=== PATIENT | male | born 1970 | race Caucasian/White ===

== ENCOUNTER 2020-05-21 14:41 | Emergency (ER) | payer MEDICAID, SELFPAY ==
[2020-05-21 14:42] VITALS: BP 148/94; PULSE 87; RESP 18; TEMP 36.3; O2SAT 97; BMI 27.1
--- NOTE | 2020-05-21 16:09 | ED.DCSUM_ITS ---
History of Present Illness Chief Complaint: Lower Extremity Injury Informant: Patient Narrative: 50-year-old male presenting with lumbar back pain with shooting pains into the right gluteal region as well as right thigh. He states he has a history of degenerative disc disease but has not had any severe back injuries. He states from time to time he does have pain. He states that the other day he overworked himself at home more than he would have normally and then he started to have pain in the right inguinal area. He thought at this point he pulled a muscle. He states he was walking with a limp and then developed back pain and pain in the gluteal region. He denies loss of bladder or bowel control. Denies urinary retention. Patient states that he has no known medical problems otherwise. He does not have a PCP. Past Medical History - Allergies and Home Meds Allergies/Adverse Reactions: Allergies No Known Allergies Allergy (Verified 05/21/20 14:44) Primary Care Physician: Kiera Guo [NON-STAFF] - NOT,OSIEL [NON-STAFF] - Prior records reviewed: Yes Past Medical History: - - Degenerative disc disease Surgical History: noncontributory Lives: Spouse/ Significant Other Smoking Status: Current every day smoker Alcohol: None Drugs: None Review of Systems General: Denies: Chills, Fever, Sweats Eyes: Reports: Visual changes - left ENT: Denies: Rhinorrhea, Sore throat Cardiovascular: Denies: Chest pain, Palpitations Respiratory: Denies: Dyspnea, Cough, Dyspnea on exertion Gastrointestinal: Denies: Abdominal pain, Nausea, Vomiting, Diarrhea, Melena, Hematochezia Genitourinary: Denies: Dysuria, Hematuria, Frequency Musculoskeletal: Reports: Myalgias - Right gluteal pain, Back pain Skin: Denies: Rash, Abscess Neurological: Denies: Headache Physical Exam Vital Signs/Narrative: Vital Signs Temp Pulse Resp BP Pulse Ox 05/21/20 14:42 97.4 F L 87 18 148/94 H 97 Inital Vital Signs reviewed: Yes General: Well nourished, No Acute Distress Head: Normocephalic Eyes: Perrl, EOMI ENT: Moist mucous membranes, No rhinorrhea Cardiovascular: Regular rate, Regular rhythm Respiratory: No distress, CTA bilaterally Back: - - Tenderness to palpation right lumbar paraspinal musculature extending into the right gluteal region.Spinal deformities or step-offs. Extremities: - - Right gluteal tenderness to palpation as noted above. Skin: Negative for: Normal color, No rash, Cyanosis Neurological: Alert, Oriented x3 Psychological: Normal affect, Normal Mood Diagnostic/Tx/Re-eval Clinical Impression(s) from Imaging Studies Lumbar Spine X-Ray 05/21/20 16:40 IMPRESSION: Normal x-ray examination of the lumbar spine. Electronically Signed: Angela Cruz MD at 17:11 EDT Tel , Service support , - Medical Decision Making 50-year-old male presenting with back pain and sciatica. He states he has had problems with degenerative disc disease in the past. I did obtain x-ray of the lumbar spine which is normal. Patient was treated with Toradol and Norflex in the ED with some improvement. He is counseled on stretching exercises, icing and heating in alternating fashion. Given follow-up with a PCP as he does not have currently. He is given return precautions. Impression: 1. Lumbar strain decline 2. Sciatica ED Disposition - Plan for ED Patient: Disposition: Home or Assisted Living Instructions: Understanding Sciatica, ED LUMBAR SPRAIN/STRAIN Prescriptions: Cyclobenzaprine HCl 10 mg PO Q8H PRN PRN #21 tab PRN Reason: Muscle Spasm Transmission Status: Received by [facility] Naproxen [Naprosyn] 500 mg PO BID PRN #30 tab Transmission Status: Received by [facility] predniSONE tablet 60 mg PO DAILY #6 tab Transmission Status: Received by [facility] Referrals: NOT,DEFINED [NON-STAFF] - Kiera Guo [NON-STAFF] -
--- NOTE | 2020-05-21 16:40 | RAD_ITS ---
STUDY: X-RAY - LUMBAR SPINE REASON FOR EXAM: Male, 50 years old. low back pain, sciatica pain, pain down right leg TECHNIQUE: 3 view(s) of the lumbar spine were obtained. COMPARISON: None FINDINGS: Normal lumbar lordosis. There is no substantial scoliosis. There is a normal alignment of the vertebrae. Normal vertebral bodies and endplates. Normal disc space heights. The soft tissue structures are unremarkable. RAD/Lumbar Spine 2 or 3 Views IMPRESSION: Normal x-ray examination of the lumbar spine. Electronically Signed: Angela Cruz MD at 17:11 EDT Tel , Service support ,
[2020-05-21] MEDS: Orphenadrine 60 MG/2 ML Ampul IM (16:55)
[2020-05-21] MEDS: Ketorolac 15 MG/ML Vial IM (16:55)
[2020-05-21 19:01] VITALS: BP 137/87; PULSE 88; RESP 17; O2SAT 98
== END 2020-05-21 19:06 | disposition home or self-care (01) ==
LOC: ED 16:36
PROVIDERS: Emergency Provider Student in an Organized Health Care Education/Training Program
DX: S39.012A Strain of muscle, fascia and tendon of lower back, initial encounter (principal); M54.41 Lumbago with sciatica, right side; F17.200 Nicotine dependence, unspecified, uncomplicated; X50.9XXA Other and unspecified overexertion or strenuous movements or postures, initial encounter; Y93.89 Activity, other specified; Y92.009 Unspecified place in unspecified non-institutional (private) residence as the place of occurrence of the external cause; Y99.8 Other external cause status
CPT/HCPCS: 72100; 96372; 99282

== ENCOUNTER 2020-09-20 12:59 | Inpatient (IN) | payer MEDICAID, SELFPAY ==
[2020-09-20] VITALS (25 sets, daily range): BP systolic 95–157; BP diastolic 60–104; PULSE 68–100; RESP 10–20; TEMP 35.7–36.9; O2SAT 50–100; BMI 28.4; BMI 28.5; BMI 29.1
[2020-09-20] MEDS: Naloxone 2 MG/2 ML Syringe NASAL (13:01)
[2020-09-20] MEDS: Etomidate 20 MG/10 ML Vial IV (13:04)
[2020-09-20] MEDS: Propofol 10MG/Ml 1,000 MG/100 ML Bottle 5.7 MG CONT INF (13:11)
--- NOTE | 2020-09-20 13:11 | EKG12_ITS ---
Test Reason : CODE BLUE Blood Pressure : / mmHG Vent. Rate : 099 BPM Atrial Rate : 099 BPM P-R Int : 144 ms QRS Dur : 084 ms QT Int : 330 ms P-R-T Axes : 054 006 054 degrees QTc Int : 423 ms Normal sinus rhythm Nonspecific ST abnormality Abnormal ECG Confirmed by SIRI ARAGON, CARLITO ([id number]), development editor CEDRIC CARLIN ([id number]) on 09/22/2020 11:31:59 AM Referred By: VERONICA Confirmed By:CARLITO HORNER MD
--- NOTE | 2020-09-20 13:15 | NURSING ---
code blue called 1257
--- NOTE | 2020-09-20 13:16 | NURSING ---
BLUE TOP HEMOLIZED
--- NOTE | 2020-09-20 13:17 | CT_ITS ---
STUDY: CT BRAIN WITHOUT CONTRAST REASON FOR EXAM: Male, 50 years old. UNRESPONSIVE RADIATION DOSAGE (If Supplied By Facility): CTDIvol = ( 44.99 ) mGy, DLP = ( 796.11 ) mGycm TECHNIQUE: Transaxial CT imaging of the brain was performed without administration of intravenous contrast material. Individualized dose optimization techniques were used for this CT. COMPARISON: No relevant priors. FINDINGS: Normal soft tissue structures. Status post right posterior parietal craniotomy. Normal size ventricles and extra-axial spaces for the patient''s age. Normal white matter tracts of the cerebral hemispheres. Normal basal ganglia and thalami. Normal brainstem. Normal cerebellum. There is no intracranial hemorrhage. There are no findings of an acute ischemic infarction. Soft tissue density/retention cyst in the left maxillary sinus. CT/Brain/Head without Contrast IMPRESSION: No acute intracranial process. Electronically Signed: Asael Claros MD at 14:20 EST Tel , Service support ,
[2020-09-20 13:18] LABS: Absolute Lymphocyte Count 6.74 X10^3/uL (0.83-4.51); Absolute Neutrophil Count 9.1 X10^3/uL (2.0-7.7); Basophil# 0.13 X10^3/uL; Basophil% 0.7 % (0-1); Differential Indicated SCAN CRITERIA MET; Eosinophil# 0.28 X10^3/uL; Eosinophils% 1.5 % (0-5); Hematocrit 53.5 % (40-54); Hemoglobin 17.1 g/dL (13.0-16.5); Lymphocyte # 6.74 X10^3/ul (4.0); Lymphocyte % 36.7 % (19-41); Mean Corpuscular Hgb 31.5 pg (27.0-32.0); Mean Corpuscular Volume 98.7 fL (80-94); Mean Platelet Vol. 9.1 fl (6.2-12.0); Monocyte# 1.67 X10^3/uL; Monocyte% 9.1 % (0-10); NRBC Flagged by Analyzer 0.1 % (0-5); Neutrophil # 9.14 X10^3/uL (2.7-7.7); Neutrophil % 49.9 % (47-70); POSITIVE DIFFERENTIAL YES; Platelet Count 312 K/mm3 (150-450); RBC Distribution Width CV 12.8 % (11.6-14.6); RBC Distribution Width SD 46.3 fl (35.1-43.9); Red Blood Count 5.42 M/mm3 (4.6-6.2); White Blood Count 18.4 K/mm3 (4.4-11.0)
--- NOTE | 2020-09-20 13:18 | ED.VISSUMM ---
- ER Visit Summary Date of Service: 09/20/20 Chief Complaint: Unresponsive History of Present Illness: The patient is a 50 M who presents unresponsive to the emergency department. Father brought the patient to the emergency department in his private vehicle. 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 Father states that he got a call saying his son was not doing well and he returned to where they were target shooting. Father noticed that the patient was weak and becoming unresponsive. Father placed the patient in his vehicle and brought him to the emergency department. Upon arrival to the emergency department, patient was placed on a cot and no pulses were palpated. CPR was started. Physical Examination: When the patient was placed in a room. Patient did have a pulse and CPR was discontinued. Vital signs are good blood pressure. Patient had no spontaneous respirations. Oral mucosa is pink and moist. There was some cyanosis of the face and head. Neck is supple. Trachea is midline. There is no JVD. Heart was regular rate and rhythm. Lungs are clear and equal bilaterally with mechanical ventilation. Abdomen is soft. Bowel sounds are normal. There is no apparent tenderness. Test Results: EKG was obtained. My interpretation, there is a normal sinus rhythm with a rate of 99. There is some baseline artifact. There is no acute ST or T wave changes noted. Portable 1 view chest x-ray was obtained. On my interpretation, lung camara are clear. There is some atelectasis noted. Endotracheal tube and nasogastric tube are in place. There is normal cardiac silhouette. Bony thorax is normal. There is no acute process noted. Radiologist also interpreted the x-ray and agrees. CBC shows a leukocytosis of 18.4. Comprehensive metabolic profile was essentially within normal limits. PT with INR and PTT were normal. Arterial blood gas shows a pH of 7.20 with a PCO2 of 60.9, PO2 of 444, bicarb of 23.6, and 100% sat on ventilator. Troponin was normal. Lactate was 2.0. CT scan of the brain was obtained. There is no acute intracranial abnormality. Was interpreted by the radiologist and reviewed by myself. Emergency Department Course and Treatment: Patient was given a dose of Narcan. Patient was intubated with a 7.5 ET tube using a glide scope. Patient did require etomidate for sedation. Patient was then placed on propofol for sedation. Patient tolerated the procedure well. Case was discussed with the hospitalist. Patient will be admitted to ICU. Hospitalist examination, patient was more awake and was able to answer yes/no questions by shaking his head. Patient did admit to snorting heroin. Hospitalist wants to try to wean the patient off the ventilator since he is now more awake and alert. Family understood and was agreeable with the plan. All questions were answered. Disposition: Admit to ICU Impression: 1. Cardiopulmonary arrest Critical care time: 40 minutes. This was time spent obtaining history, performing physical examination, documenting, interpreting test results, discussion with consultants, and determining disposition. This note was generated with [employer] dictation software. It may contain incorrect words, spelling, and punctuation that were not noted in review of the chart prior to signing ED Disposition - Plan for ED Patient: Disposition: Acute Care Hospital [facility] Diagnosis: Cardiopulmonary arrest with successful resuscitation Referrals: Care Physician,No Primary [NON-STAFF] -
--- NOTE | 2020-09-20 13:28 | RAD_ITS ---
STUDY: X-RAY CHEST REASON FOR EXAM: Male, 50 years old. Patient found unresponsive, line placement TECHNIQUE: Single AP portable view of the chest. COMPARISON: None. FINDINGS: Endotracheal tube with its tip approximately 5 cm proximal to the paramjit. Nasogastric tube extends below the level of diaphragm but is not included on this examination. Stranding/atelectasis in the left lung base. No focal infiltrate otherwise is seen. There is no demonstrated pleural abnormality. Normal size heart. Normal mediastinum and cj. Normal visualized pulmonary arteries. Normal visualized aortic arch and descending thoracic aorta. The thoracic spine is not well-seen. Normal visualized ribs, clavicles, and shoulders. There is no demonstrated abnormality of the visualized soft tissue structures of the upper abdomen. RAD/Chest 1 View (Portable) IMPRESSION: Status post intubation and nasogastric tube placement. Mild atelectatic changes in the left lung base. Electronically Signed: Asael Claros MD at 13:49 EST Tel , Service support ,
[2020-09-20 13:30] LABS: Base Excess -4 mmol/L (-2 to +2); Bicarbonate 23.6 mmol/L (22-26); Blood Gas Specimen Type ART; FI02 100; Mode AC; O2 Delivery Device Adult Vent; PEEP 5; PO2 444 mmHG (75-100); RR 14; SITE R Brach; SO2 100 % (95-99); Total Carbon Dioxide 26 mmol/L; Vt 500; pCO2 60.9 mmHg (35-45)
[2020-09-20 13:31] LABS: AST(SGOT) 103 U/L (15-37); Alanine Aminotransfer ALT/SGPT 25 U/L (16-61); Alkaline Phosphatase 138 U/L (45-117); Anion Gap 8 (5-15); BUN 7 mg/dL (7-18); BUN/Creat Ratio 6.5 RATIO (10-20); Calcium,Total 8.8 mg/dL (8.5-10.1); Chloride 105 mmol/L (98-107); Creatinine, Serum 1.07 mg/dL (0.70-1.30); EST Glomerular Filtration Rate 77 mL/min (>60); Est Glom Filt Rate - Afr Amer 94 mL/min (>60); Glucose 170 mg/dL (74-106); Potassium 3.8 mmol/L (3.5-5.1); Sodium Level 139 mmol/L (136-145)
[2020-09-20 13:38] LABS: Differential Comment SCANNED; Reactive Lymphocyte 1+
[2020-09-20 13:43] LABS: Squamous Epithelial Cells - UA 0 SEEN /hpf (0-5); White Blood Cells 0 SEEN /hpf (0-5)
[2020-09-20 13:44] LABS: International Normalized Ratio 1.1; Prothrombin Time (Protime)PT. 13.2 SECONDS (11.7-14.9)
[2020-09-20 13:44] LABS: Color, Urine Yellow (Yellow); Glucose, Dipstick 250 mg/dl (Normal); Ketone-Dipstick 5 mg/dl (Negative); Leukocyte Esterase-Dipstick 25 /ul (Negative); Nitrite-Dipstick Negative (Negative); Occult Blood-Urine 50 /ul (Negative); Protein-Dipstick 30 mg/dl (Negative); Specific Gravity, Urine 1.025 (1.002-1.030); Urine Bilirubin Dipstick Negative (Negative); Urine Clarity Sl. Cloudy (Clear); Urine Urobilinogen 1 mg/dl (Normal)
[2020-09-20 13:45] LABS: Partial Thromboplast Time 24.9 Seconds (24.1-36.2)
[2020-09-20 13:52] LABS: Bacteria RARE /hpf (None Seen); Calcium Oxalate Crystals Ur 1+ /hpf (<or=2+); Hyaline Cast 10-25 SEEN /lpf (0-5); Mucous, Urine 2+ /hpf (<or=2+); Red Blood Cells-Urine 0-5 SEEN /hpf (0-5)
--- NOTE | 2020-09-20 14:04 | CPS ---
Critical PaO2 on blood gas given to at 1330 on 09-20-2020.
--- NOTE | 2020-09-20 15:17 | PCM.HP.STD ---
Problem List (1) Heroin overdose Status: Acute (2) Cardiopulmonary arrest with successful resuscitation Status: Acute History of Present Illness Date of Admission: 09/20/20 Chief Complaint: Cardiopulmonary arrest. The patient is a 50 year old M with no significant past medical history presented to the emergency room by his father on his private car because patient was unresponsive. At this time, patient is awake and alert but he is on mechanical ventilation. Patient's father and mother were at the bedside and father provided the history. Patient's father mentioned that this morning, he went with his son to the [employer] and he left the range to go home. He was told by a friend who told him that his son is not doing well and irritated were his son was at the [employer]. Patient's father mentioned that the patient was profusely sweating, awake but lethargic and he had no complaints. The father mentioned that his son did not complain of any chest pain or shortness of breath, did not complain of any dizziness or lightheadedness. Follow-up with his son in the car and they brought him to the emergency department. In route to the hospital, the father mentioned that the patient became more unresponsive. Upon arrival to ED, patient was placed on a cot and he had no pulse. CPR was started and then upon arrival to the ED room, patient had spontaneous circulation and he had pulse. He was intubated and started mechanical ventilation. He was given 1 dose of IV Narcan. At this time, patient is awake, alert, on mechanical ventilation. I asked the patient about using drugs and he did admitting snorting heroin after his father left the [employer]. At this time, patient is afebrile, blood pressure and heart rate are stable, pulse ox is 99% on mechanical ventilation. Because patient was fully awake and his respiratory status seems stable, we decided to extubate the patient while in the ED. Patient was extubated, did very well and he remained on oxygen at 2 L with pulse ox of 99%. Routine blood work was remarkable for significant leukocytosis, blood glucose is 170, otherwise normal. LFT was unremarkable. Lactic acid was normal. ABG revealed pH of 7.20, PCO2 of 60 and PO2 of 444. Urinalysis showed cloudy urine, negative for nitrite, there was no WBCs and rare bacteria. EKG revealed normal sinus rhythm with nonspecific T wave changes, no acute ischemic changes. Troponin is negative. CT scan brain showed no acute findings. Urine drug screen was positive for amphetamines and methamphetamines. Chest x-ray showed no acute infiltrate or consolidation. He is being admitted for cardiopulmonary arrest due to drug overdose. Past Medical History Allergies Penicillins [PCN] Allergy (Verified 09/20/20 14:30) Hives shellfish derived Adverse Reaction (Verified 09/20/20 14:30) Nausea/Vom/Diarrhea Home Medications: Ambulatory Orders Medication Instructions Recorded NK 09/20/20 Surgical History: noncontributory Psychiatric History: No pertinent psych hx Smoking Status: Current every day smoker Tobacco Use: Cigarettes Alcohol: None Drugs: Heroin - *Family History Maternal History Items: No pertinent history Paternal History Items: No pertinent history Review of Systems Constitutional: Denies: Anorexia, Chills, Fever, Weakness Eyes: Denies: Blurred vision, Double vision, Drainage, Redness HEENT: Denies: Difficulty Hearing, Ear Pain, Eye Pain, Nasal Congestion, Sore Throat Cardiovascular: Denies: Chest Pain, Chest Pressure, Edema, Palpitations, Syncope Respiratory: Denies: Cough, Pleuritic Pain, Shortness of Breath, Sputum production, Wheezing Gastrointestinal: Denies: Abdominal Pain, Constipation, Diarrhea, Nausea, Vomiting Genitourinary: Denies: Dysuria, Frequency, Hematuria Musculoskeletal: Denies: Arm Pain, Back Pain, Foot Pain Skin: Denies: Dryness, Rash Neurological: Denies: Balance problems, Double vision, Change in Speech, Slurred speech, Headaches, Incoordination Psychiatric: Denies: Anxiety, Depression Endocrine: Denies: Change in Body Habitus, Polydipsia, Polyuria VTE Information - Inpt Only VTE Present on Admission: No VTE Mechan Device Prophylaxis: None VTE Pharm Prophylaxis ordered?: Yes Patient Problems: Active and Suspected Problems Heroin overdose (Acute) Cardiopulmonary arrest with successful resuscitation (Acute) - Physical Exam Vitals/I&O's: Vital Signs Temp Pulse Resp BP Pulse Ox 96.5 F L 77 19 H 126/86 H 99 09/20/20 15:16 09/20/20 15:16 09/20/20 15:16 09/20/20 14:34 09/20/20 15:16 Oxygen Flow Rate (L/min) 3 Oxygen Delivery Method Mechanical Ventilator Weight: 209 lb 14.081 oz Body Mass Index (BMI) 28.4 Finger Stick Blood Glucose 156 Intake and Output for Last 24 Hours 09/18/20 09/19/20 09/20/20 23:59 23:59 23:59 Intake Total Balance General: Alert, Oriented x3, Cooperative, No apparent distress, - HEENT: Atraumatic, PERRLA, EOMI, Normocephalic Oral: Moist Mucosa, No Gingival or Mucosal Lesions/ Ulcerations Neck: Supple, No JVD, Negative Carotid Bruits, Trachea Midline, Thyroid Normal Size and Texture Lungs: Clear to auscultation, Normal air movement, No wheeze, No rales, Diminished Cardiovascular: Regular rate, Regular Rhythm, Normal S1, Normal S2, PMI Normal Abdomen: Bowel Sounds Present, Soft, Non Tender, Non-Distended, No Hepato-splenomegaly Extremities: No clubbing, No cyanosis, No edema Skin: No rashes, No breakdown Lymphatic: No Cervical, Supraclavicular, or Inguinal Adenopathy Neurological: Cranial nerves II-XII grossly intact, Motor Exam 5/5 strength throughout Psych/Mental Status: Normal Affect, Appropriate Laboratory Results 09/20/20 13:00: WBC 18.4 H, RBC 5.42, Hgb 17.1 H, Hct 53.5, MCV 98.7 H, MCH 31.5, MCHC 32.0, RDW Std Deviation 46.3 H, RDW Coeff of Yair 12.8, Plt Count 312, MPV 9.1, Immature Gran % (Auto) 2.100 H, Neut % (Auto) 49.9, Lymph % (Auto) 36.7, Garfield % (Auto) 9.1, Eos % (Auto) 1.5, Baso % (Auto) 0.7, Absolute Neuts (auto) 9.1 H, Absolute Lymphs (auto) 6.74 H, Nucleated RBC % 0.1, Differential Comment SCANNED, Diff Path Review November, Reactive Lymphocytes 1+ 09/20/20 13:00: Sodium 139, Potassium 3.8, Chloride 105, Carbon Dioxide 26.0, Anion Gap 8, BUN 7, Creatinine 1.07, Est GFR (MDRD) Af Amer 94, Est GFR (MDRD) Non-Af 77, BUN/Creatinine Ratio 6.5 L, Glucose 170 H, Calcium 8.8, Total Bilirubin 0.60, AST 103 H, ALT 25, Alkaline Phosphatase 138 H, Troponin I < 0.015, Total Protein 8.0, Albumin 4.0, Globulin 4.0, Albumin/Globulin Ratio 1.0 09/20/20 13:10: Urine Color Yellow, Urine Clarity Sl. Cloudy, Urine pH 5.0, Ur Specific [place] 1.025, Urine Protein 30 H, Urine Glucose (UA) 250 H, Urine Ketones 5 H, Urine Occult Blood 50 H, Urine Nitrite Negative, Urine Bilirubin Negative, Urine Urobilinogen 1 H, Ur Leukocyte Esterase 25 H, Urine RBC 0-5 SEEN, Urine WBC 0 SEEN, Ur Squamous Epith Cells 0 SEEN, Calcium Oxalate Crystal 1+, Urine Bacteria RARE, Hyaline Casts 10-25 SEEN, Urine Mucus 2+ 09/20/20 13:10: Urine Opiates Screen Pending, Urine Methadone Screen Pending, Ur Barbiturates Screen Pending, Ur Phencyclidine Scrn Pending, Ur Amphetamines Screen Pending, U Methamphetamin-MDMA Pending, U Benzodiazepines Scrn Pending, Urine Cocaine Screen Pending, U Cannabinoids Screen Pending, Ur Drug Screen Comment 09/20/20 13:26: Specimen Type ART, Sample Site R Brach, pH 7.20 L, Bicarbonate Actual 23.6, Total CO2 26, Base Excess -4 L, O2 Saturation 100 H, O2 % 100, ABG pCO2 60.9 H, ABG pO2 444 H*, Respiration Rate 14, O2 Delivery Device Adult Vent, Vent Mode AC, Tidal Volume 500, POC PEEP 5 09/20/20 13:30: PT 13.2, INR 1.1, APTT 24.9 09/20/20 13:30: Lactic Acid 2.0 Clinical Impression(s) from Imaging Studies Brain CT 09/20/20 13:17 IMPRESSION: No acute intracranial process. Electronically Signed: Asael Claros MD at 14:20 EST Tel , Service support , Chest X-Ray 09/20/20 13:28 IMPRESSION: Status post intubation and nasogastric tube placement. Mild atelectatic changes in the left lung base. Electronically Signed: Asael Claros MD at 13:49 EST Tel , Service support , Current Medications Propofol (Diprivan) 1,000 mg in 100 mls @ 5.712 mls/hr CONT INF .Q12H NEO; Protocol Last Titration: 09/20/20 15:16 Dose: 20 mcg/kg/min, 11.4 mls/hr Documented by: Assessment/Plan All Active Problems Heroin overdose (Acute) Cardiopulmonary arrest with successful resuscitation (Acute) This is a 50 years old male patient presented to the emergency room because of unresponsiveness, found to have cardiopulmonary arrest upon arrival to ED, status post CPR with successful anglican of the spontaneous circulation and this is attributed to heroin overdose. #1 cardiopulmonary arrest/acute hypercapnic respiratory failure: Status post CPR with successful anglican of spontaneous circulation. Initially, patient was intubated and started mechanical ventilation. After he received IV Narcan, he became alert and awake and did well. Decision was made to extubate the patient which was done and he was extubated, remained on oxygen at 2 L with pulse ox of 99%. Currently, blood pressure and heart rate are stable. It is attributed to drug overdose. EKG revealed normal sinus rhythm without evidence of acute ischemic changes. Troponin was negative. CT scan brain showed no acute findings. Troponin is negative. Plan: Admit to intensive care unit, critical care monitoring, complete bedrest, start clear liquids, IV fluids for hydration, Tylenol as needed, Zofran as needed, critical care consult, repeat CBC and CMP tomorrow morning. #2 heroin overdose: Patient admitted snorting heroin just before symptoms started. Urine drug screen is positive for amphetamines and methamphetamines. He received 1 dose of IV Narcan in the ED. Currently, he is alert and awake, status post extubation. Plan as above. #3 hyperglycemia: Without history of diabetes. Will check hemoglobin A1c. #4 DVT prophylaxis: Subcu Lovenox. This note was generated with [employer] software. It may contain incorrect words, spelling, and punctuation that were not noted in checking the note before signing. Inpatient E&M: 11014 Init Hosp L3
--- NOTE | 2020-09-20 15:18 | NURSING ---
ICU [facility] CPR
--- NOTE | 2020-09-20 15:30 | NURSING ---
ICU 3
--- NOTE | 2020-09-20 15:55 | ED.RN ---
PT EXTUBATED BY RESP THERAPY. DR DUNCAN IN THE ROOM IMMEDIATELY AFTER EXTUBATION. PT ABLE TO BREATHE ON HIS OWN WITHOUT DIFFICULTY. PT ABLE TO SWALLOW HIS OWN SECRETIONS. PER DR DUNCAN, OK FOR PT TO DRINK SOME WATER. PT DRANK WATER WITHOUT DIFFICULTY.
--- NOTE | 2020-09-20 16:12 | NURSING ---
PCU [facility]BS
[2020-09-20] MEDS: 0.9% Normal Saline 1,000 ML 100 ML IV (16:45)
[2020-09-20 17:09] LABS: Hemoglobin A1c 6.2 % (3.8-5.6)
[2020-09-20 17:33] LABS: Reflex Lactate? Y
[2020-09-20] MEDS: Acetaminophen 325 MG Tablet 650 MG PO (19:49)
[2020-09-20] MEDS: Famotidine 200 MG/20 ML MDV 20 MG in 0.9% Normal Saline (Pres. free 8 ML 300 MG IV (21:06)
[2020-09-21] VITALS (10 sets, daily range): BP systolic 108–147; BP diastolic 62–97; PULSE 72–102; RESP 13–18; TEMP 36.6–37.3; O2SAT 94–99
[2020-09-21] MEDS: 0.9% Normal Saline 1,000 ML 100 ML IV (02:47)
[2020-09-21] MEDS: 0.9% Saline Lock 10 ML Syringe IV ×2 (03:48→22:19)
[2020-09-21] MEDS: Acetaminophen 325 MG Tablet 650 MG PO ×2 (03:48→18:08)
[2020-09-21 03:50] LABS: Absolute Lymphocyte Count 3.05 X10^3/uL (0.83-4.51); Absolute Neutrophil Count 7.1 X10^3/uL (2.0-7.7); Basophil# 0.06 X10^3/uL; Basophil% 0.5 % (0-1); Eosinophils% 2.6 % (0-5); Hematocrit 43.4 % (40-54); Hemoglobin 13.9 g/dL (13.0-16.5); Lymphocyte # 3.05 X10^3/ul (4.0); Lymphocyte % 26.6 % (19-41); Mean Corpuscular Hgb 31.7 pg (27.0-32.0); Mean Corpuscular Volume 99.1 fL (80-94); Mean Platelet Vol. 8.7 fl (6.2-12.0); Monocyte% 7.8 % (0-10); NRBC Flagged by Analyzer 0 % (0-5); Neutrophil # 7.08 X10^3/uL (2.7-7.7); Neutrophil % 61.8 % (47-70); Platelet Count 228 K/mm3 (150-450); RBC Distribution Width CV 12.8 % (11.6-14.6); RBC Distribution Width SD 46.9 fl (35.1-43.9); Red Blood Count 4.38 M/mm3 (4.6-6.2); White Blood Count 11.5 K/mm3 (4.4-11.0)
[2020-09-21 05:25] LABS: ALB/GLOB Ratio 0.9 RATIO (0.9-2.4); AST(SGOT) 84 U/L (15-37); Alanine Aminotransfer ALT/SGPT 19 U/L (16-61); Albumin, Serum 2.7 g/dL (3.2-5.0); Alkaline Phosphatase 98 U/L (45-117); Anion Gap 6 (5-15); BUN 8 mg/dL (7-18); BUN/Creat Ratio 9.3 RATIO (10-20); Calcium,Total 8.1 mg/dL (8.5-10.1); Chloride 112 mmol/L (98-107); Creatinine, Serum 0.86 mg/dL (0.70-1.30); EST Glomerular Filtration Rate 99 mL/min (>60); Est Glom Filt Rate - Afr Amer 120 mL/min (>60); Estimated Creatinine Clearance 111.54 ml/min; Globulin 2.9 g/dL (2.2-4.2); Glucose 154 mg/dL (74-106); Protein, Total 5.6 g/dL (6.4-8.2); Sodium Level 142 mmol/L (136-145)
[2020-09-21] MEDS: Enoxaparin 40 MG/0.4 ML Syringe SC (09:07)
[2020-09-21] MEDS: Famotidine 200 MG/20 ML MDV 20 MG in 0.9% Normal Saline (Pres. free 8 ML 300 MG IV ×2 (09:07→22:19)
--- NOTE | 2020-09-21 11:11 | PN_ITS ---
Patient Problems: Active and Suspected Problems Heroin overdose (Acute) Cardiopulmonary arrest with successful resuscitation (Acute) Subjective: Patient seen and examined. He was admitted as a case of cardiopulmonary arrest after he snorted a line of heroin. Patient subsequently was revived with Narcan. She has remained stable since. Patient has no complaints this morning. Review of systems otherwise negative. He has remained hemodynamically stable. Vitals/I&O's: Vital Signs Temp Pulse Resp BP Pulse Ox 99.1 F 95 13 147/84 H 94 09/21/20 09:08 09/21/20 09:08 09/21/20 09:08 09/21/20 09:08 09/21/20 09:08 Oxygen Flow Rate (L/min) 2 Oxygen Delivery Method Room Air Weight: 214 lb 15.987 oz Body Mass Index (BMI) 29.1 Finger Stick Blood Glucose 156 Intake and Output for Last 24 Hours 09/19/20 09/20/20 09/21/20 23:59 23:59 23:59 Intake Total 340.02 / 340.02 1310 / 1310 Output Total 500 / 500 150 / 150 Balance -159.98 / -159.98 1160 / 1160 General: Alert, Oriented x3, Cooperative HEENT: Atraumatic, PERRLA, EOMI, Normocephalic Neck: Supple, No JVD, Negative Carotid Bruits Lungs: Clear to auscultation, Normal air movement Cardiovascular: Regular rate, No murmurs Abdomen: Bowel Sounds Present, Soft, Non Tender Extremities: No edema, Capillary Refill Less than 3 Seconds Skin: No rashes, No breakdown Musculoskeletal: No Tenderness to Palpation of Joints or Extremities Neurological: Cranial nerves II-XII grossly intact, Neuro grossly intact, Motor Exam 5/5 strength throughout Psych/Mental Status: Normal Affect, Appropriate, Alert and oriented to time, place, person, mood and affect Laboratory Results 09/20/20 13:00: WBC 18.4 H, RBC 5.42, Hgb 17.1 H, Hct 53.5, MCV 98.7 H, MCH 31.5, MCHC 32.0, RDW Std Deviation 46.3 H, RDW Coeff of Yair 12.8, Plt Count 312, MPV 9.1, Immature Gran % (Auto) 2.100 H, Neut % (Auto) 49.9, Lymph % (Auto) 36.7, [place] % (Auto) 9.1, Eos % (Auto) 1.5, Baso % (Auto) 0.7, Absolute Neuts (auto) 9.1 H, Absolute Lymphs (auto) 6.74 H, Nucleated RBC % 0.1, Differential Comment SCANNED, Diff Path Review May foll, Reactive Lymphocytes 1+ 09/20/20 13:00: Sodium 139, Potassium 3.8, Chloride 105, Carbon Dioxide 26.0, Anion Gap 8, BUN 7, Creatinine 1.07, Est GFR (MDRD) Af Amer 94, Est GFR (MDRD) Non-Af 77, BUN/Creatinine Ratio 6.5 L, Glucose 170 H, Calcium 8.8, Total Bilirubin 0.60, AST 103 H, ALT 25, Alkaline Phosphatase 138 H, Troponin I < 0.015, Total Protein 8.0, Albumin 4.0, Globulin 4.0, Albumin/Globulin Ratio 1.0 09/20/20 13:10: Urine Color Yellow, Urine Clarity Sl. Cloudy, Urine pH 5.0, Ur Specific [place] 1.025, Urine Protein 30 H, Urine Glucose (UA) 250 H, Urine Ketones 5 H, Urine Occult Blood 50 H, Urine Nitrite Negative, Urine Bilirubin Negative, Urine Urobilinogen 1 H, Ur Leukocyte Esterase 25 H, Urine RBC 0-5 SEEN, Urine WBC 0 SEEN, Ur Squamous Epith Cells 0 SEEN, Calcium Oxalate Crystal 1+, Urine Bacteria RARE, Hyaline Casts 10-25 SEEN, Urine Mucus 2+ 09/20/20 13:10: Urine Opiates Screen Cancelled, Urine Methadone Screen Cancelled, Ur Barbiturates Screen Cancelled, Ur Phencyclidine Scrn Cancelled, Ur Amphetamines Screen Cancelled, U Methamphetamin-MDMA Cancelled, U Benzodiazepines Scrn Cancelled, Urine Cocaine Screen Cancelled, U Cannabinoids Screen Cancelled, Ur Drug Screen Comment Cancelled 09/20/20 13:26: Specimen Type ART, Sample Site R Brach, pH 7.20 L, Bicarbonate Actual 23.6, Total CO2 26, Base Excess -4 L, O2 Saturation 100 H, O2 % 100, ABG pCO2 60.9 H, ABG pO2 444 H*, Respiration Rate 14, O2 Delivery Device Adult Vent, Vent Mode AC, Tidal Volume 500, POC PEEP 5 09/20/20 13:30: PT 13.2, INR 1.1, APTT 24.9 09/20/20 13:30: Lactic Acid 2.0 09/20/20 16:00: Hemoglobin A1c 6.2 H 09/21/20 03:45: WBC 11.5 H, RBC 4.38 L, Hgb 13.9, Hct 43.4, MCV 99.1 H, MCH 31.7, MCHC 32.0, RDW Std Deviation 46.9 H, RDW Coeff of Yair 12.8, Plt Count 228, MPV 8.7, Immature Gran % (Auto) 0.700, Neut % (Auto) 61.8, Lymph % (Auto) 26.6, [place] % (Auto) 7.8, Eos % (Auto) 2.6, Baso % (Auto) 0.5, Absolute Neuts (auto) 7.1, Absolute Lymphs (auto) 3.05, Nucleated RBC % 0 09/21/20 03:45: Sodium 142, Potassium 4.0, Chloride 112 H, Carbon Dioxide 24.0, Anion Gap 6, BUN 8, Creatinine 0.86, Estim Creat Clear Calc 111.54, Est GFR (MDRD) Af Amer 120, Est GFR (MDRD) Non-Af 99, BUN/Creatinine Ratio 9.3 L, Glucose 154 H, Calcium 8.1 L, Total Bilirubin 0.50, AST 84 H, ALT 19, Alkaline Phosphatase 98, Total Protein 5.6 L, Albumin 2.7 L, Globulin 2.9, Albumin/Globulin Ratio 0.[address] 09/20/20 13:17 IMPRESSION: No acute intracranial process. Electronically Signed: Asael Claros MD at 14:20 EST Tel , Service support , Chest X-Ray 09/20/20 13:28 IMPRESSION: Status post intubation and nasogastric tube placement. Mild atelectatic changes in the left lung base. Electronically Signed: Asael Claros MD at 13:49 EST Tel , Service support , Current Medications Acetaminophen (Acetaminophen 325 Mg Tablet) 650 mg PO Q6H PRN PRN PRN Reason: Pain 1-10 or Fever Last Admin: 09/21/20 03:48 Dose: 650 mg Documented by: Enoxaparin Sodium (Enoxaparin 40 Mg/0.4 Ml Syringe) 40 mg SC DAILY [facility] Last Admin: 09/21/20 09:07 Dose: 40 mg Documented by: Sodium Chloride () 1,000 mls @ 100 mls/hr IV .Q10H NEO Last Admin: 09/21/20 02:47 Dose: 100 mls/hr Documented by: Famotidine 20 mg/ Sodium (Chloride) 10 mls @ 300 mls/hr IV Q12 [facility] Last Infusion: 09/21/20 09:09 Dose: Infused Documented by: Nicotine (Nicotine 21 Mg Patch) 21 mg TD DAILY [facility] Last Admin: 09/21/20 09:07 Dose: 21 mg Documented by: Ondansetron HCl (Ondansetron 4 Mg/2 Ml Vial) 4 mg IV Q8H PRN PRN PRN Reason: NAUSEA/VOMITING Sodium Chloride (0.9% Saline Lock 10 Ml Syringe) 10 - 40 ml IV UD PRN PRN Reason: SALINE FLUSH Last Admin: 09/21/20 03:48 Dose: 10 ml Documented by: STROKE Vital Signs/Narrative: Vital Signs Temp Pulse Resp BP Pulse Ox 09/21/20 09:08 99.1 F 95 13 147/84 H 94 09/21/20 07:40 82 Medical Necessity - Tobacco Use Smoking Status: Current every day smoker Tobacco Use: Cigarettes Assessment/Plan All Active Problems Heroin overdose (Acute) Cardiopulmonary arrest with successful resuscitation (Acute) #Acute cardiopulmonary arrest due to heroin overdose * patient was revived with use of narcan in the ED and has remained stable since * admits to snorting a line of heroin yesterday'; claims he has abstained from heroin for the past 5 years, till yesterday * He has remained hemodynamically stable. * Critical care not consulted at time of admission. Patient now hemodynamically stable and I will transfer out of the ICU; therefore will hold off on critical care consult. # Impaired glucose tolerance * glucose was elevated on admission. A1C was 6.2. * will relationship counselor on DASh diet and lifestyle modifications * to follow up with PCP on outpatient basis * #Heroin overdose * urine tox positive for amphetamines and methamphetamines * was intubated, but subsequently extubated after he was revived with narcan. * wants access to counseling services. Will consult [facility] * DVT prophylaxis: lovenox Inpatient E&M: 74703 Subs Hosp L2
--- NOTE | 2020-09-21 11:44 | CASEMGMT ---
SW met w/pt in room in regard to prior level of function and anticipated discharge plan. PCP: Natalie Henry with a PCP office in [place], pt not certain the name of it, has not been in to see her yet--just got appt when got new insurance Specialists: None Pharmacy: [facility] [place] Insurance: [place] LNOK: Parents, son who is 27, (in process of divorce) LW/POA: Pt thinks he completed these in the past and it lists his . Pt is interested in updating forms, but not today. Pt wants to speak w/son about putting him as medical POA. SW reviewed the forms w/pt and gave him copies, gave him the number to call to set up appt if he would like to update the forms. Living arrangements/Prior level of function: Pt is currently living w/his parents in a one story home, living in their house and he states she will likely get the house in the divorce. Pt is fully independent with ADLs, drives, has a vehicle. 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 He has a history of snorting heroin, and of smoking cigarettes. Pt denies any additional history of substance abuse. Pt states a friend offered him some heroin on Monday and he decided to do it. Pt plans to get and stay clean again. Pt has been to [facility] in the past, and has participated in NA in the past. Pt interested in getting back involved with [facility] and with returning to NA, would like information for in person NA meetings and is open to SW setting up an intake appt at [facility]. Support: Pt states has a good support system with family and friends, and states that they will be helpful to him. Pt agreeable to SW setting up appt at [facility] and to information on NA. SW set up an intake at [facility] for 9am on 09/25/20. SW also asked about in person NA meetings, attained this information for pt. SW gave pt the information for the appointment and for the NA meetings. Plan: Pt home w/parents at discharge and follow up w/[facility] and NA. No further needs anticipated at this time. YUKI Aguilera
[2020-09-21 13:33] LABS: Pathologist Review Reviewed
--- NOTE | 2020-09-21 15:11 | NURSING ---
1505-report given to LISSY Elliott for transfer to [facility].
--- NOTE | 2020-09-21 19:27 | NURSING ---
PT REPORTING PAIN THAT HAS NOT BEEN THIS BAD ALL WEEKEND, IT HURST TO PUT MY ARMS DOWN, IT FEELS LIKE SOMETHING IS POKING INTO MY LUNG, POINTING TO HIS LEFT LOWER RIB CAGE. THIS NURSE UPDATED ONCOMING NURSE REILLY AND WILL NOTIFY
[2020-09-21] MEDS: Ketorolac 15 MG/ML Vial IV (22:19)
[2020-09-22 03:00] VITALS: PULSE 76
[2020-09-22 04:23] VITALS: BP 140/91; PULSE 83; RESP 18; TEMP 36.8; O2SAT 95
[2020-09-22] MEDS: Acetaminophen 325 MG Tablet 650 MG PO ×2 (04:27→10:29)
[2020-09-22 09:10] LABS: Bedside Glucose 156 mg/dL (70-110)
[2020-09-22] MEDS: Famotidine 20 MG Tablet PO (10:20)
[2020-09-22 10:22] VITALS: BP 136/79; PULSE 90; RESP 18; TEMP 36.7; O2SAT 97
--- NOTE | 2020-09-22 11:27 | NURSING ---
late entry: in room with pt 1015. pt states doctor said will dc him today.. I informed him that i did speak to Dr. De Leon this morning and she will dc him to .. pt stated that he called for a ride at 11am. informed him that we need to wait for the d/c order incase she writes for medication.. pt states that he will leave at 11am no matter what. entered pt room at 1130 to inform him of not getting d/c paper work yet and pt has already left. text placed to Dr. De Leon
--- NOTE | 2020-09-22 11:43 | DCINST_ITS ---
- Discharge Diagnoses Current Active Problems: Current Active and Chronic Problems Heroin overdose (Acute) Cardiopulmonary arrest with successful resuscitation (Acute) You will use the following diet at home:: Calorie/Carbohydrate Controlled (specify 1200, 1400, etc) Your food should be the consistency of: Regular Your liquids should be the consistency of: Regular/Thin Discharge Activity: Return to Normal Activity Weight Bearing Status: Weight bearing as tolerated Call your doctor if you observe: Fever of 101 or Higher, Shortness of breath, Dizziness, Fainting spells Instructions: ED Overdose, Opiate, Hyperglycemia (High Blood Sugar), ED Hyperglycemia New Susp Diabetes Additional Instructions: started on Metformin 500mg bid for impaired glucose tolerance Allergies/Adverse Reactions: Allergies Penicillins [PCN] Allergy (Verified 09/20/20 14:30) Hives shellfish derived Adverse Reaction (Verified 09/20/20 14:30) Nausea/Vom/Diarrhea Medications to take at Discharge Metformin HCl 500 mg PO BID #60 tab 09/22/20 The following prescriptions were given: Metformin HCl 500 mg PO BID #60 tab Transmission Status: Pending to [facility] Primary Care Physician: Care Physician,No Primary [NON-STAFF] - Test Results: Test results from this visit will be discussed in further detail at your follow- up appointment, if applicable. Please Follow Up With: [facility] When: Monday Please Follow Up With: Anton Kim MD When: 2-3 weeks to set up PCP appointment Proposed Discharge Date: 09/22/20
--- NOTE | 2020-09-22 12:01 | NURSING ---
called pts cellphone to go over d/c papers and meds that were sent to his pharmacy.. VM was left with instructions to call this RN back.
--- NOTE | 2020-09-22 19:27 | DS.PCM_ITS ---
Discharge Date and Diagnosis - Problem List Patient Problems: Active and Suspected Problems Heroin overdose (Acute) Cardiopulmonary arrest with successful resuscitation (Acute) Date of Admission: 09/20/20 Date of Discharge: 09/22/20 - Primary Discharge Diagnosis Acute Problems: Active Problems Heroin overdose (Acute) Cardiopulmonary arrest with successful resuscitation (Acute) Hospital Course and Treatment Operations: None Procedures: None Summary of Care Provided: The patient is a 50 year old M with no significant past medical history presented to the emergency room by his father on his private car because patient was unresponsive. At this time, patient is awake and alert but he is on mechanical ventilation. Patient's father and mother were at the bedside and father provided the history. Father said he [place] with his son, and left him there. He was subsequently called by a friend who said patient was not doing well. Patient was found to be lethargic and sweating profusely. WHilst father was transorting him to the hospital in his car, patient became unresponsive. On arrival in the ED, patient had no pulse; CPR was started and patient had ROSC; he was emergently intubated. He was then given a dose of IV narcan, after which he became responsive and was subsequenly extubated. He a dmitted to snorting some heroin, which he thinks may have been laced with something. Urine tox done was positive for amphetamines and methamphetamines, but no opiates. Brauliotent remained stable and was transferred out of [facility] ICU. LAbs done showed elevated A1C indicating impairged glucose tolerance, so he was started on oral metformin 500mg bid. He remained stable and was discharged home on 09/22/2020. He is to follow up with his PCP in 1-2 weeks. Patient seen and examined prior to discharge. He had no complaints. Review of systems was otherwise negative. Labs and vitals reviewed. Home meds reviewed and reconciled. He was also counseled to quit using IV drug use. He is to follow up at [facility] on outpatient basis. Patient Problems: Active and Suspected Problems Heroin overdose (Acute) Cardiopulmonary arrest with successful resuscitation (Acute) - Physical Exam Vitals/I&O's: Vital Signs Temp Pulse Resp BP Pulse Ox 98.1 F 90 18 136/79 H 97 09/22/20 10:22 09/22/20 10:22 09/22/20 10:22 09/22/20 10:22 09/22/20 10:22 Oxygen Flow Rate (L/min) 2 Oxygen Delivery Method Room Air Weight: 214 lb 15.987 oz Body Mass Index (BMI) 29.1 Finger Stick Blood Glucose 156 Intake and Output for Last 24 Hours 09/20/20 09/21/20 09/22/20 23:59 23:59 23:59 Intake Total 340.02 / 340.02 3370 / 3370 300 / 300 Output Total 500 / 500 550 / 550 Balance -159.98 / -159.98 2820 / 2820 300 / 300 General: Alert, Oriented x3, Cooperative HEENT: Atraumatic, PERRLA, EOMI, Normocephalic Neck: Supple, No JVD, Negative Carotid Bruits Lungs: Clear to auscultation, Normal air movement Cardiovascular: Regular rate, Regular Rhythm, Normal S1, Normal S2, No murmurs Abdomen: Bowel Sounds Present, Soft, Non Tender Extremities: No edema, Capillary Refill Less than 3 Seconds Skin: No rashes, No breakdown Musculoskeletal: No Tenderness to Palpation of Joints or Extremities Neurological: Cranial nerves II-XII grossly intact Psych/Mental Status: Normal Affect, Appropriate, Alert and oriented to time, place, person, mood and affect Laboratory Results 09/20/20 13:04: POC Glucose 156 H Discharge Diet: Low fat/ Low Cholesterol Discharge Activity: Return to Normal Activity Weight Bearing Status: Weight bearing as tolerated Call your doctor if you observe: Fever of 101 or Higher, Shortness of breath, Dizziness, Fainting spells Home Medications: Medications to take at Discharge Metformin HCl 500 mg PO BID #60 tab 09/22/20 Following Prescriptions Were Given to Patient: Metformin HCl 500 mg PO BID #60 tab Transmission Status: Received by [facility]30 Primary Care Physician: Care Physician,No Primary [NON-STAFF] - Please Follow Up With: [facility] When: Monday Please Follow Up With: Anton Kim MD When: 2-3 weeks to set up PCP appointment Patient Instructions: Hyperglycemia (High Blood Sugar), ED Overdose, Opiate, ED Hyperglycemia New Susp Diabetes Disposition: Home Minutes spent on discharge:: 35 Patient Condition:: Stable Medical Necessity - Tobacco Use Smoking Status: Current every day smoker Tobacco Use: Cigarettes Meaningful Use Info Meaningful Use Diagnoses (Choose all that apply): None applicable Inpatient E&M: 65087 Subs Hosp L3
== END 2020-09-22 11:00 | disposition home or self-care (01) | DRG 816 ==
LOC: ED 14:49 → ICU 15:29 → MS3 09-22 09:00
PROVIDERS: Admitting Provider Hospitalist; Emergency Provider Emergency Medicine; PCP Nurse Practitioner Family; Visit Provider Student in an Organized Health Care Education/Training Program
DX: T40.1X1A Poisoning by heroin, accidental (unintentional), initial encounter (principal); I46.8 Cardiac arrest due to other underlying condition; J96.02 Acute respiratory failure with hypercapnia; F17.210 Nicotine dependence, cigarettes, uncomplicated; R73.9 Hyperglycemia, unspecified
CPT/HCPCS: 31500; 31720; 36600; 51702; 70450; 71045; 80053; 80307; 81001; 82803; 82962; 83036; 83605; 84484; 85025; 85610; 85730; 92950; 93005; 94002; 97802; 99285; 99406; J7030; A4216; J3490

== ENCOUNTER 2020-11-24 09:25 | Emergency (ER) | payer OTHER, MEDICAID, SELFPAY ==
[2020-09-20 16:41] VITALS: BMI 29.1
[2020-11-24 09:26] VITALS: BP 155/98; PULSE 93; RESP 16; TEMP 36.3; O2SAT 97; BMI 27.7
--- NOTE | 2020-11-24 10:20 | EX.ED.UPPERE ---
HPI History of Present Illness HPI Narrative: Patient presents with left wrist laceration that occurred today. Patient states he was at work and using a utility knife to open a box when he accidentally cut his left wrist. Patient denies any paresthesias or weakness. Patient states his last tetanus was approximately 3 years ago. Patient denies any pain. Patient applied dressing immediately and was able to stop the bleeding after a few minutes of pressure. Patient denies any other injuries. Chief Complaint: Laceration Informant: patient Occured/Mechanism Mechanism/Context: Yes injury and Yes work related Onset/Context/Timing Onset: Today Timing: Continuous Current Severity: Gone Associated Symptoms Associated Symptoms: Negative for Parasthesia, Weakness and Loss of Funtion Narrative Tetanus Immunization: <5 years PFSH PFSH Home Medications metformin 500 mg PO BID #60 tab 09/22/20 [Rx Last Taken Unknown] Allergy/AdvReac Type Severity Reaction Status Date / Time Penicillins [PCN] Allergy Hives Verified 09/20/20 14:30 shellfish derived AdvReac Nausea/Vom/ Verified 09/20/20 14:30 Diarrhea Social History Smoking Status: Current every day smoker ROS ROS ED Constitutional Constitutional ED: Denies chills or sweats Eyes Eyes: Denies blurry vision or change in vision ENT ENT ED: Denies rhinorrhea or sore throat Cardiovascular Cardiovascular: Denies chest pain or palpitations Respiratory/Chest Respiratory/Chest: Denies cough or dyspnea Gastrointestinal Gastrointestinal: Denies abdominal pain, nausea or vomiting Genitourinary Genitourinary ED: Denies dysuria or hematuria Musculoskeletal Musculoskeletal: Denies back pain or neck pain Integumentary Denies abscess or rash Neurologic Neurologic: Denies paresthesias or weakness Allergic/Immunologic Allergic/Immunologic ED: Denies mouth swelling or urticaria EXAM Physical Exam Const Vital Signs: 11/24/20 09:26 Temperature 97.3 F L Temperature Source Temporal Pulse Rate 93 Respiratory Rate 16 Blood Pressure 155/98 H Blood Pressure Mean 117 Pulse Ox 97 Oxygen Delivery Method Room Air Positive well nourished and well developed General Appearance ED: well developed HEENT normocephalic and atraumatic Neck full ROM and supple Extremity Left Upper Extremity: wrist inspection (There is a 4 cm full-thickness linear laceration transversely across the volar aspect of the left wrist. There are no foreign bodies. There is minimal active bleeding.), palpation (There is no tenderness to palpation.), ROM (There is full range of motion actively, passively, and against resistance), neurovascular exam (Neurovascular exam is intact. Kuldip's test was negative.) and special tests Wrist Special Tests - Left: Kuldip's test: Negative Neuro oriented x3, moves all extremities, no focal motor deficits and no sensory deficits noted Sensorium / Orientation: alert Motor Exam: strength 5/5 throughout Skin Skin Narrative: There is a 4 cm full-thickness linear laceration transversely across the volar aspect of the left wrist. Trauma: laceration linear, No actively bleeding, No pulsatile bleeding, No foreign body present, involves subcutaneous tissue, motor nerve function intact and sensation intact Image ED - Upper Extremity Diagram: 1. 4 cm full-thickness linear laceration MDM MDM MDM Narrative Medical decision making narrative: The wound was cleaned and irrigated with copious amounts normal saline. The wound was anesthetized with 1% plain lidocaine locally. The wound was closed with 4 simple interrupted horizontal mattress sutures under sterile technique. Patient tolerated the procedure well. Bacitracin dressing is applied. Procedures Lacerations Laceration: Length: 1.57 in Depth: Sub Q Shape: Linear Prep: Sterile Conditions and Shure-Clens Laceration repair: Irrigated, Lidocaine and Wound explored Irrigated (ml): 60 Number of Sutures/Stewart: 4 Suture Information: Ethilon, Horizontal, Vertical and 4-0 Discharge Plan Triage Chief Complaint: Laceration ED Provider: Genaro Dockery Dx/Rx/DC Orders Clinical Impression: Laceration of left wrist without complication Instructions: ED Laceration: All Closures Prescriptions: No Action metformin 500 MG tablet 500 mg PO BID Qty: 60 RF: 1 Primary Care Provider: Natalie Henry NP Referrals: Natalie Henry NP, [employer] [Primary Care Provider] - Activity Restrictions/Additional Instructions: Follow-up with your primary care physician or corporate care in 7 days for wound recheck and suture removal. Return if any signs of infection such as redness, drainage, fevers, chills, or swelling. Return if worse in any way. Print Language: Bulgarian Disposition Patient Disposition: Home, self care
[2020-11-24] MEDS: Lidocaine 1% (20 ml mdv) 20 ML Vial INFILT (10:33)
== END 2020-11-24 10:47 | disposition home or self-care (01) ==
PROVIDERS: Emergency Provider Emergency Medicine; PCP Nurse Practitioner Family
DX: S61.512A Laceration without foreign body of left wrist, initial encounter (principal); F17.200 Nicotine dependence, unspecified, uncomplicated; W26.0XXA Contact with knife, initial encounter; Y93.89 Activity, other specified; Y92.89 Other specified places as the place of occurrence of the external cause; Y99.0 Civilian activity done for income or pay
CPT/HCPCS: 12002; 99284

== ENCOUNTER 2023-02-01 17:59 | Emergency (ER) | payer MEDICAID, SELFPAY ==
[2023-02-01 18:00] VITALS: BP 114/89; PULSE 84; RESP 18; TEMP 36.3; O2SAT 97; BMI 26.9
[2023-02-01 18:04] VITALS: BP 135/95; PULSE 85; RESP 16; O2SAT 94
--- NOTE | 2023-02-01 18:20 | EKG12_ITS ---
Test Reason : CP Blood Pressure : / mmHG Vent. Rate : 088 BPM Atrial Rate : 088 BPM P-R Int : 146 ms QRS Dur : 084 ms QT Int : 344 ms P-R-T Axes : 024 -06 053 degrees QTc Int : 416 ms Normal sinus rhythm Normal ECG Confirmed by MARINO ARAGON, KEENAN ([id number]), editor greeting card CEDRIC CARLIN ([id number]) on 02/06/2023 12:49:59 P M Referred By: DAVE/MARTINEZ Confirmed By:NATIVIDAD PICHARDO MD
--- NOTE | 2023-02-01 18:28 | CT_ITS ---
CTA THORAX/ABDOMEN/PELVIS INDICATION: Chest pain, vomiting, suspect dissection COMPARISON: None. TECHNIQUE: Helical axial scans were obtained through the chest, abdomen, and pelvis during IV contrast infusion, followed by 100 mL saline flush. Coronal reformat images as well as 3-D rotational reconstruction of aorta and in plane reconstructions of right and left iliac arteries were obtained. CT scan done according to ALARA (As Low As Reasonably Achievable). CONTRAST: 100 mL of Omnipaque (350 mmol/mL) was administered IV with 0 mL discarded. FINDINGS: CTA Pulmonary arteries: Superior segment right lower quadrant lobe pulmonary artery filling defect (series 2, image 61). Thoracic aorta: No aneurysm or dissection. No atherosclerotic calcific plaque noted. Abdominal aorta: No aneurysm or dissection. Infrarenal mostly soft plaque. Iliofemoral arteries: Widely patent Renal arteries: Widely patent Celiac artery: Widely patent SMA: Widely patent FCO: Widely patent CT Lungs and pleura: Small right and trace left pleural effusions with associated atelectasis. Bilateral lower lung areas of scarring. No acute infiltrates or nodules. No significant emphysematous changes. Mediastinum and pulmonary cj: Diffuse circumferential esophageal thickening. No mass or adenopathy. Heart: Normal heart size. No pericardial effusion. Liver and spleen: Normal size. No mass. Gallbladder: No calcified stones or wall thickening identified. Bile ducts: No biliary dilatation. Pancreas: No mass or enlargement. No pancreatic fluid collections. Adrenals and kidneys: No adrenal masses. Normal renal contours. Bilateral renal cysts. No stones identified. No hydronephrosis. Lymph nodes: No adenopathy. Bowel and mesentery: Small fat-containing hiatal hernia. There is a normal appearance of the stomach and small bowel. No areas of bowel wall thickening or inflammation are noted. Appendix is normal. Peritoneal cavity: No ascites. Pelvic structures: A small amount of radiodense material layers in the urinary bladder.. Body wall: No masses or hernias. Skeletal structures: Normal thoracolumbar vertebral alignment.. Body wall: No masses or hernias. Skeletal structures: Normal thoracolumbar vertebral alignment.. CT/CTA Chst, Abd, Pel W and/or WO IMPRESSION: 1. Right lower lobe superior segment pulmonary artery embolus. 2. Radiodense layering material in the urinary bladder may represent calcium, blood, or malignancy. 3. Small bilateral pleural effusions with atelectasis and lung scarring. 4. No finding of aortic dissection. Electronically Signed: Yeyo Zhou MD at 19:56 EDT ,
--- NOTE | 2023-02-01 18:31 | EDS_ITS ---
HPI HPI - GI History of Present Illness Chief Complaint: Chest Pain Detail of Chief Complaint: Epigastric abdominal pain radiating into his chest and back Informant: patient and spouse/S.O. Abdominal Pain/Flank Pain Onset: Today and Hours Context: Gradual Onset Timing: Continuous Quality: Cramping Location: Epigastric Current Severity: Moderate Maximum Severity: Moderate Worsened by: Nothing Relieved by: Nothing Nausea/Vomiting/Emesis GI Symptom: Positive for Nausea and Vomiting Onset: Today and Hours Severity: Moderate Diarrhea/Melena/Hematochezia GI Symptom: Negative for Diarrhea, Melena or Hematochezia Associated Symptoms Associated Symptoms: Negative for Dysuria, Frequency or Hematuria Narrative Narrative: 52-year-old male missing a past medical history. Prior brain surgery for trauma x2. Said around 3 AM this morning he got epigastric abdominal pain started having nausea and vomiting with it. It then radiated to the left side of his chest and into his back. No prior history. He has no cardiac history. He does smoke. He denies alcohol use. Prior to today he said he is been feeling fine. He denies any recent exertional chest pain or exertional dyspnea. No leg pain or swelling. No history of aneurysms. He is not treated for high blood pressure. He denies prior abdominal surgeries. Prior similar symptoms: No Recent Illness/Hospitalization: No PFSH PFSH Medical History no medical history no medical history Home Medications metformin 500 mg tablet 500 mg PO BID #60 tabs 09/22/20 [Rx Last Taken Unknown] Allergy/AdvReac Type Severity Reaction Status Date / Time Penicillins [PCN] Allergy Hives Verified 02/01/23 18:01 shellfish derived AdvReac Nausea/Vom/ Verified 02/01/23 18:01 Diarrhea Social History Smoking Status: Current every day smoker tobacco type: cigarettes ROS ROS ED ROS Narrative Epigastric abdominal pain. Back and chest pain. Nausea and vomiting. Review of Systems ROS Unobtainable: Denies due to encephalopathy Constitutional Constitutional ED: Denies chills or fever(s) ENT ENT ED: Denies ear pain Cardiovascular Cardiovascular: Reports chest pain; Denies palpitations or racing heartbeat Respiratory/Chest Respiratory/Chest: Denies cough or dyspnea Gastrointestinal Gastrointestinal: Reports abdominal pain, nausea and vomiting; Denies constipation, diarrhea or melena Genitourinary Genitourinary ED: Denies dysuria or hematuria Musculoskeletal Musculoskeletal: Reports back pain; Denies arthralgias Integumentary Denies abscess Neurologic Neurologic: Denies headache(s) Psychiatric Psychiatric: Denies anxiety Hematologic/Lymphatic Hematologic/Lymphatic: Denies easy bleeding Allergic/Immunologic Allergic/Immunologic ED: Denies mouth swelling or tongue swelling EXAM Physical Exam Narrative Exam Narrative: 82-year-old male vital signs stable afebrile. Pulse ox 97% room air no signs hypoxia. Initial pressure 114/89. He does not look septic toxic or in any distress. HEENT exam unremarkable. Neck nontender no JVD. Lungs clear to auscultation bilaterally. Heart regular rhythm no murmur. Chest wall no significant tenderness. Normal inspection. Abdomen soft nondistended normal bowel sounds no peritoneal signs. Really no significant epigastric or right upper quadrant tenderness. No Chen sign. Right lower quadrant nontender. No distention. No pulsatile mass. Moving all 4 extremities. Calves are nontender without edema or cords. Radial pulses are equal symmetrical. Normal tempering kiln tender strength and range of motion. Neurologically is awake and alert with no focal motor deficits. Const Vital Signs: 02/01/23 18:00 02/01/23 18:04 02/01/23 18:04 Temperature 97.3 F L Temperature Source Temporal Pulse Rate 84 85 Respiratory Rate 18 16 Respiratory Effort Normal Respiratory Pattern Normal Blood Pressure 114/89 H 135/95 H Blood Pressure Mean 97 108 Pulse Ox 97 94 Oxygen Delivery Method Room Air Room Air 02/01/23 18:23 02/01/23 19:54 02/01/23 21:54 Temperature Temperature Source Pulse Rate 81 80 Respiratory Rate 21 H 16 Respiratory Effort Respiratory Pattern Blood Pressure 112/69 136/95 H Blood Pressure Mean 83 108 Pulse Ox 95 98 Oxygen Delivery Method Room Air Room Air Room Air Positive well nourished; Negative for well developed, obese, cachectic, contractures or unkempt General Appearance ED: NAD; Negative for unkempt, well developed, cachectic, contractures or pallor Nutritional Appearance: Negative for cachectic or obese HEENT Reports moist mucous membranes normocephalic and atraumatic; Negative for trauma or tenderness Eyes PERRL and EOMs intact bilaterally General Eye ED: Negative for pale conjunctiva, scleral icterus or other Neck no lymphadenopathy, supple and no JVD General: Negative for tenderness Carotids: Negative for other Lymph Lymphatic: Negative for other Resp normal respiratory effort and clear to auscultation bilaterally Effort and Inspection: Negative for respiratory distress Auscultation: Negative for rales, rhonchi or wheezes Cardio regular rate, regular rhythm, S1 normal heart sound, S2 normal heart sound and no murmurs Rate: Negative for bradycardia or tachycardic Rhythm: Negative for abnormal rhythm GI non-tender, non-distended and no masses Inspection: Negative for abdominal distention Auscultation: normoactive bowel sounds Palpation: soft; Negative for tender, guarding, rigid, hepatomegaly, splenomegaly, hernia, mass, pulsatile mass or rebound tenderness present Back/Spine no CVA tenderness General Back: Negative for CVA tenderness Cervical Spine: Negative for cervical spine tenderness Thoracic Spine / Upper Back: Negative for thoracic spinal tenderness Lumbar Spine / Lower Back: Negative for lumbar spinal tenderness Coccyx: Negative for other Extremity full ROM General Extremety ED: Negative for edema or tenderness General Extremity: Negative for edema Neuro CN's II-XII intact bilaterally, moves all extremities and No no sensory deficits noted Sensorium / Orientation: alert, oriented to person, oriented to place and oriented to time; Negative for orientation impaired, confused, lethargic or stuporous Motor Exam: strength 5/5 throughout Psych mental status grossly normal and thought process normal Appearance: Negative for unkempt Attitude: No agitated Mood & Affect: Negative for depressed, anxious or tearful Skin no wounds General Skin Exam: Negative for jaundice or pallor Lesions: no lesions Rashes: no rashes Trauma: Negative for abrasion Nails: Negative for discolored MDM MDM MDM Narrative Medical decision making narrative: 52-year-old male with epigastric abdominal pain radiating to his chest and back. Clinically ending this will end up being GI but concern would be cardiac etiology which I think is less likely or even dissection. Cardiac work-up will be done. Along with a lipase and liver enzymes. He will get a CTA of his chest and abdomen to be evaluated for possible dissection and I think is less likely also pancreatitis versus other etiologies. He did not want anything for pain. He will be given Zofran for nausea. CTA of the chest abdomen and pelvis showed no dissection but the radiologist thinks there may be a right lower lobe PE. He and I discussed the CTA results. Patient has no risk factors. Has never had a DVT or PE. There is no leg pain or swelling. The pain is not pleuritic. The pain was left-sided and he had nausea and vomiting with it. Clinically I think is very low risk for an actual PE. I discussed all this with the patient and his family. They want to make sure this is a PE before we subject him to 6 months of anticoagulation. I do not disagree. I am going to order a specific CTA of the chest. Also a D-dimer and a leg ultrasound. If that is all negative I am not going to put him on anticoagulation. Patient will also be given a bolus of saline due to the amount of contrast. The CTA of the chest alone did not show any pulmonary emboli. As read by the same radiologist to read the first. This clinically fits his picture and I never thought that he had a pulmonary emboli. He will not be treated with anticoagulation. I also had noninvasive venous studies done of both his legs and there was no DVT. There was a superficial thrombophlebitis on the right which she has had before. Patient is doing well at 10:14 PM. I do lengthy discussion both he and his family. He will be discharged home. History & Record Review Discussion w/independent historian: Patient Lab Data Attestation: I reviewed the patient's lab results. Lab results narrative: CBC shows a white count of 20,500. H&H is 17.6 and 52. He has had high white counts and hemoglobin as before. Platelets 311. Electrolytes are unremarkable gap of 5. Normal BUN and creatinine. Liver enzymes are normal. Alk phos 124. Lipase is normal at 23. Chest x-ray and EKG unremarkable. CTA of the chest is concerning for right lower lobe pulmonary emboli. Second troponin is normal at [address] of the chest alone did not show any PE. Labs: Laboratory Results - last 24 hr 02/01/23 02/01/23 18:20 20:55 WBC 20.5 H RBC 5.41 Hgb 17.6 H Hct 52.1 MCV 96.3 H MCH 32.5 H MCHC 33.8 RDW Std Deviation 45.4 H RDW Coeff of Yair 13.0 Plt Count 311 MPV 8.8 Immature Gran % (Auto) 0.400 Neut % (Auto) 77.7 H Lymph % (Auto) 14.5 L [place] % (Auto) 6.3 Eos % (Auto) 0.8 Baso % (Auto) 0.3 Absolute Neuts (auto) 15.9 H Absolute Lymphs (auto) 2.97 Nucleated RBC % 0 Sodium 139 Potassium 3.6 Chloride 109 H Carbon Dioxide 25.0 Anion Gap 5 BUN 10 Creatinine 0.88 Estim Creat Clear Calc 106.55 Est GFR (MDRD) Af Amer 116 Est GFR (MDRD) Non-Af 96 BUN/Creatinine Ratio 11.3 Glucose 179 H Calcium 9.0 Total Bilirubin 0.40 Direct Bilirubin 0.09 AST 12 L ALT 23 Alkaline Phosphatase 124 H Troponin I High Sens 5 5 Total Protein 6.9 Albumin 3.1 L Globulin 3.8 Lipase 23 Radiography Chest X-Ray - ED: 1 View, Read by ED Physician, Read by Radiologist, Heart, Lungs, Mediastinum, Bony Structures, No Acute Disease and Chronic Changes Diagnostic Testing: Clinical Impression(s) from Imaging Studies Chest/Abdomen/Pelvis CTA 02/01/23 18:28 IMPRESSION: 1. Right lower lobe superior segment pulmonary artery embolus. 2. Radiodense layering material in the urinary bladder may represent calcium, blood, or malignancy. 3. Small bilateral pleural effusions with atelectasis and lung scarring. 4. No finding of aortic dissection. Electronically Signed: Yeyo Zhou MD at 19:56 EDT , ADDENDUM: 02/01/232022 IMPRESSION: 1. Right lower lobe superior segment pulmonary artery embolus. 2. Radiodense layering material in the urinary bladder may represent calcium, blood, or malignancy. 3. Small bilateral pleural effusions with atelectasis and lung scarring. 4. No finding of aortic dissection. N.B. : The above Results were Read Back by Yeyo Zhou MD to Gael Cope MD, and understanding confirmed on 02/01/2023 20:16:39 (ET). Electronically Signed: Yeyo Zhou MD at 19:56 EDT , Chest X-Ray 02/01/23 18:45 IMPRESSION: Right lung base atelectasis/scarring. Electronically Signed: Yeyo Zhou MD at 19:08 EDT , Chest CTA 02/01/23 21:14 IMPRESSION: Normal CTA chest examination, without a demonstrated pulmonary embolism or arterial dissection. Redemonstrated small pleural effusions with overlying atelectasis and scarring. Electronically Signed: Yeyo Zhou MD at 21:59 EDT , Rhythm Strip Rhythm Strip: Sinus Rhythm Rate: 88 Ectopy: None EKG Initial EKG: Attestation: I personally reviewed and interpreted this EKG as follows: Interpretation: Sinus Rhythm and No Acute Injury Pattern Comments: Normal sinus rhythm rate 88 no acute signs of OR or ischemia. Prior EKG tracings: not available for review Discharge Plan Triage Chief Complaint: Chest Pain ED Provider: Gael Cope Dx/Rx/DC Orders Clinical Impression: Chest pain, Vomiting, Abdominal pain, acute, epigastric Instructions: ED Chest Pain, Uncertain Cause, ED Epigastric Pain Uncertain Cause Prescriptions: No Action metformin 500 MG tablet 500 mg PO BID Qty: 60 1RF Primary Care Provider: Care Physician,No Primary Referrals: Michael Sharma MD [Med Staff - Change Management Specialist] - 1-2 Weeks Care Physician,No Primary [Primary Care Provider] - Activity Restrictions/Additional Instructions: Your labs and CAT scan were unremarkable. We do not have a specific cause for your pain. The initial CAT scan was concerning for a possible blood clot in your right lower chest. And repeated the CAT scan to center specifically on your lungs there is no blood clot. Follow-up with a local primary care physician. Return if feeling worse. Disposition Disposition: Home, Self Care
[2023-02-01] MEDS: Ondansetron 4 MG/2 ML Vial IV (18:37)
[2023-02-01 18:42] LABS: Absolute Lymphocyte Count 2.97 X10^3/uL (0.83-4.51); Absolute Neutrophil Count 15.9 X10^3/uL (2.0-7.7); Basophil# 0.07 X10^3/uL; Basophil% 0.3 % (0-1); Eosinophil# 0.16 X10^3/uL; Eosinophils% 0.8 % (0-5); Hematocrit 52.1 % (40-54); Hemoglobin 17.6 g/dL (13.0-16.5); Lymphocyte # 2.97 X10^3/ul (0.83-4.51); Lymphocyte % 14.5 % (19-41); Mean Corp Hgb Conc 33.8 g/dL (32-36); Mean Corpuscular Hgb 32.5 pg (27.0-32.0); Mean Corpuscular Volume 96.3 fL (80-94); Mean Platelet Vol. 8.8 fl (6.2-12.0); Monocyte# 1.28 X10^3/uL; Monocyte% 6.3 % (0-10); NRBC Flagged by Analyzer 0 % (0-5); Neutrophil % 77.7 % (47-70); Platelet Count 311 K/mm3 (150-450); RBC Distribution Width SD 45.4 fl (35.1-43.9); Red Blood Count 5.41 M/mm3 (4.6-6.2); White Blood Count 20.5 K/mm3 (4.4-11.0)
--- NOTE | 2023-02-01 18:45 | RAD_ITS ---
INDICATION: Chest pain EXAMINATION/TECHNIQUE: X-RAY - XR Chest 1 View COMPARISON: 09/20/2020 FINDINGS: LUNGS: Right lung base atelectasis/scarring. No consolidation, edema or effusion. No pneumothorax. MEDIASTINUM AND CARDIOVASCULAR STRUCTURES: Cardiac silhouette not enlarged. Central airways and mediastinal contour are unremarkable. RAD/Chest 1 View (Portable) IMPRESSION: Right lung base atelectasis/scarring. Electronically Signed: Yeyo Zhou MD at 19:08 EDT ,
[2023-02-01 18:55] LABS: Anion Gap 5 (5-15); BUN 10 mg/dL (7-18); BUN/Creat Ratio 11.3 RATIO (10-20); Chloride 109 mmol/L (98-107); Creatinine, Serum 0.88 mg/dL (0.70-1.30); EST Glomerular Filtration Rate 96 mL/min (>60); Est Glom Filt Rate - Afr Amer 116 mL/min (>60); Estimated Creatinine Clearance 106.55 ml/min; Glucose 179 mg/dL (74-106); Potassium 3.6 mmol/L (3.5-5.1); Sodium Level 139 mmol/L (136-145); Troponin-I HS (w/2H Reflex) 5 pg/mL (3.0-78.0)
[2023-02-01 19:04] LABS: Lipase 23 U/L (13-75)
[2023-02-01 19:13] LABS: AST(SGOT) 12 U/L (15-37); Alanine Aminotransfer ALT/SGPT 23 U/L (16-61); Albumin, Serum 3.1 g/dL (3.2-5.0); Alkaline Phosphatase 124 U/L (45-117); Bilirubin, Direct 0.09 mg/dL (0.00-0.30); Globulin 3.8 g/dL (2.2-4.2); Protein, Total 6.9 g/dL (6.4-8.2)
[2023-02-01 19:54] VITALS: BP 112/69; PULSE 81; RESP 21; O2SAT 95
[2023-02-01 20:29] LABS: Reflex Troponin-HS? (from REC) Y
--- NOTE | 2023-02-01 20:56 | ED.RN ---
Blood drawn and sent to lab
--- NOTE | 2023-02-01 21:14 | CT_ITS ---
STUDY: CTA CHEST REASON FOR EXAM: Male, 52 years old. Right sided upper chest pain. RADIATION DOSAGE (If Supplied By Facility): CTDIvol = ( 12.73 ) mGy, DLP = ( 479.89 ) mGycm TECHNIQUE: The examination was performed with the intravenous administration of ISOVUE 370-100ml. Post-processing of the angiographic images was performed, with multiplanar reformation and 3D reconstruction. Individualized dose optimization techniques were used for this CT. COMPARISON: CT angiogram performed 2 hours earlier FINDINGS: Normal enhancement of the main pulmonary artery and right and left pulmonary arteries. Normal enhancement of the bilateral peripheral pulmonary arteries. There is no demonstrated pulmonary embolism. Normal thoracic aorta and visualized great vessels. There is no demonstrated aortic dissection. Normal heart and pericardium. Normal mediastinum. Normal hilar regions. Normal visualized trachea and bronchi. Small bilateral pleural effusions with atelectasis and scarring. Normal chest wall structures. CT/CTA Chest W/WO Contrast IMPRESSION: Normal CTA chest examination, without a demonstrated pulmonary embolism or arterial dissection. Redemonstrated small pleural effusions with overlying atelectasis and scarring. Electronically Signed: Yeyo Zhou MD at 21:59 EDT ,
--- NOTE | 2023-02-01 21:17 | US_ITS ---
INDICATION: CHEST PAIN/ PE EXAMINATION: Ultrasound US Venous Duplex LE Bilat Complete TECHNIQUE: Calderon scale, pulse wave, and color flow Doppler imaging was performed of the lower extremity venous system. The bilateral greater saphenous, common femoral, femoral, and popliteal veins were interrogated. COMPARISON: None FINDINGS: There is normal compression, augmentation, and signal throughout the visualized deep lower extremity veins. The right and left deep femoral veins are not interrogated. Right lesser saphenous vein noncompressibility with internal echo and lack of Doppler flow. No mass or fluid collection. US/Venous Duplex Imag/[place] Extrem IMPRESSION: Right lesser saphenous vein thrombus. No sonographic evidence of deep venous thrombosis. Electronically Signed: Yeyo Zhou MD at 22:31 EDT ,
[2023-02-01 21:21] LABS: Troponin-I HS 5 pg/mL (3.0-78.0)
[2023-02-01] MEDS: 0.9% Normal Saline 1,000 ML 999 ML IV (21:51)
[2023-02-01 21:54] VITALS: BP 136/95; PULSE 80; RESP 16; O2SAT 98
[2023-02-01 22:20] LABS: D-Dimer Quantitative (DVT/PE) 0.54 FEU/ug/m (0.27-0.49)
--- NOTE | 2023-02-01 23:03 | ED.RN ---
IV removed intact, no bleeding at site. Verbalized understanding of instructions. Ambulatory from dept.
== END 2023-02-01 23:04 | disposition home or self-care (01) ==
PROVIDERS: Emergency Provider Emergency Medicine; Visit Provider Emergency Medicine
DX: R07.9 Chest pain, unspecified (principal); R11.2 Nausea with vomiting, unspecified; R10.13 Epigastric pain; F17.210 Nicotine dependence, cigarettes, uncomplicated; E66.9 Obesity, unspecified
CPT/HCPCS: 71045; 71275; 74174; 80048; 80076; 83690; 84484; 85025; 85379; 93005; 93970; 96374; 99284; J7030; Q9967; J2405

== ENCOUNTER 2025-03-22 12:51 | Inpatient (IN) | payer SELFPAY ==
[2025-03-22] VITALS (11 sets, daily range): BP systolic 103–126; BP diastolic 52–80; PULSE 84–101; RESP 15–20; TEMP 36.4–37.2; O2SAT 94–97; BMI 27.9; BMI 27.6
--- NOTE | 2025-03-22 13:15 | EX.ED.DYSGE1 ---
HPI History of Present Illness Chief Complaint: Abscess Narrative Narrative: 54-year-old male presents with pain and swelling of his right forearm that has had for the last 4 days. He relates history that he had a bad case of poison mónica for the last few weeks. It was treated with calamine lotion. He is mainly right hand dominant if not ambidextrous but states that he had swelling and pain in his right forearm and it has been draining pus. He is able to move his fingers and his elbow without difficulty. He went to urgent care this morning, and was told that he needed to be admitted to the hospital for IV antibiotics for abscess of his right forearm. Patient states he is not diabetic, denies fevers or chills, no nausea or vomiting. PFSH PFSH Home Medications ?Medication ?Instructions ?Recorded ?Last Taken ?Type metformin 500 mg tablet 500 mg PO BID #60 tabs 09/22/20 Unknown Rx Allergy/AdvReac Type Severity Reaction Status Date / Time Penicillins (PCN) Allergy Hives Verified 02/01/23 18:01 shellfish derived AdvReac Nausea/Vom/ Verified 02/01/23 18:01 Diarrhea Social History Smoking Status: Current every day smoker tobacco type: cigarettes ROS ROS ED ROS Narrative Review of systems positive for contact dermatitis treated with calamine lotion. Positive pain, swelling, redness of right proximal forearm, drainage of pus from area. [id number]/ambidextrous. No elbow or finger pain. EXAM Physical Exam Narrative Exam Narrative: Afebrile. Vital signs noted. Nontoxic-appearing. Cardiovascular examination initially reveals mild tachycardia. Lungs clear to auscultation bilaterally. Abdomen soft nontender with normal active bowel sounds, no guarding or rebound. Neurological examination nonfocal, nonlateralizing. There is mild swelling and erythema noted in the right proximal forearm. Positive area of purulent drainage. Full range of motion of right elbow. Neurovascular intact distally with palpable radial pulse and good capillary refill of fingers. No pain with movement of fingers and right forearm. Const Vital Signs: 03/22/25 12:52 03/22/25 12:55 03/22/25 13:55 Temperature 97.7 F L 98.9 F 97.8 F Temperature Source Oral Oral Oral Pulse Rate 101 H 84 88 Respiratory Rate 20 H 16 18 Blood Pressure 125/80 H 103/69 112/76 Blood Pressure Mean 95 80 88 Pulse Ox 97 97 94 Oxygen Delivery Method Room Air Room Air Room Air 03/22/25 14:55 Temperature 97.8 F Temperature Source Temporal Pulse Rate 97 Respiratory Rate 19 H Blood Pressure 115/76 Blood Pressure Mean 89 Pulse Ox 97 Oxygen Delivery Method Room Air MDM MDM MDM Narrative Medical decision making narrative: The differential diagnosis includes but not limited to cellulitis versus abscess of right forearm. I have low suspicion for compartment syndrome. As the area is already draining pus, incision and drainage will be performed to help open up the wound to see if there is a large amount of pus return. Additionally, sepsis workup was pursued as he was initially tachycardic. However repeat vitals 3 minutes later show him not to be tachycardic but he did have a drop in his blood pressure to 103 systolic. I reviewed his laboratory work he does have a leukocytosis of 19.3 with hemoglobin 15.8, hematocrit 45.1, platelet count normal at 282. Urinalysis is negative for infection. Electrolyte panel and lactic acid currently pending. I was able to review his lactic acid which is normal at 1.9 and CMP shows hyponatremia of 132 which I think is nonspecific and alk phos slightly elevated at 136 with normal AST and normal ALT. Incision and drainage performed with large amount of purulent pus expelled from the right forearm abscess. See procedure note for details. He was started on levofloxacin and vancomycin given his penicillin allergy of hives. I do feel that he merits at least observation for continued IV antibiotics for the cellulitis of his right upper extremity/forearm. Patient discussed with the hospitalist. I discussed patient with Dr. Izaguirre who will admit the patient to the medical surgical floor. Disposition is admit in stable condition. History & Record Review Discussion w/independent historian: Patient Lab Data Attestation: I reviewed the patient's lab results. Labs: Laboratory Results - last 24 hr 03/22/25 13:34 WBC 19.3 H RBC 4.76 Hgb 15.8 Hct 45.1 MCV 94.7 H MCH 33.2 H MCHC 35.0 RDW Std Deviation 42.9 RDW Coeff of Yair 12.3 Plt Count 282 MPV 9.0 Immature Gran % (Auto) 0.900 Neut % (Auto) 75.6 H Lymph % (Auto) 12.3 L Alexander % (Auto) 9.4 Eos % (Auto) 1.4 Baso % (Auto) 0.4 Absolute Neuts (auto) 14.6 H Absolute Lymphs (auto) 2.37 Nucleated RBC % 0 Sodium 132 L Potassium 3.9 Chloride 97 L Carbon Dioxide 20.8 L Anion Gap 15 BUN 10 Creatinine 0.94 Estim Creat Clear Calc 105.46 Est GFR (MDRD) Non-Af 95 BUN/Creatinine Ratio 10.2 Glucose 331 H Lactic Acid 1.9 Calcium 9.2 Total Bilirubin 0.53 AST 25 ALT 27 Alkaline Phosphatase 136 H Total Protein 7.2 Albumin 3.5 Globulin 3.7 Albumin/Globulin Ratio 1.0 Urine Color Yellow Urine Clarity Clear Urine pH 6.0 Ur Specific [place] 1.015 Urine Protein 15 H Urine Glucose (UA) 1000 H Urine Ketones Negative Urine Occult Blood 25 H Urine Nitrite Negative Urine Bilirubin Negative Urine Urobilinogen Normal Ur Leukocyte Esterase Negative Urine RBC 0 SEEN Urine WBC 0 SEEN Ur Squamous Epith Cells 0 SEEN Urine Bacteria 0 SEEN Urine Mucus 0 SEEN Management Discussion w/another healthcare provider: Hospitalist (Dr. Izaguirre) Procedures Other Procedures Procedure(s): Incision and drainage of right forearm abscess. Patient informed of the risk of continued infection and scarring and acknowledges understanding. There is already purulent drainage noted on the right forearm. I spoke with alcohol use to Skin-Prep surrounding this area. Lidocaine 1% used as a local anesthesia. Incision made with #11 blade, stellate, with moderate return of purulent and serosanguineous discharge. Area irrigated with saline, probed and deloculated with hemostats. Quarter inch plain packing placed double tailed. Patient tolerated procedure well. Discharge Plan Dx/Rx/DC Orders Clinical Impression: Abscess of right forearm, Cellulitis, Leukocytosis Disposition Disposition: Acute Care Hospital [facility]
--- OUTSIDE RECORDS SUMMARY | 2025-03-22 13:18 | XMS RPT_ITS | CCD ---
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 (2 sources) Shellfish; Translations: [shellfish derived] Propensity to adverse reactions 3 Nausea/Vom/Diar [facility] (1 source) Penicillins Drug allergy (disorder) 3 [facility] Repository Medications Current Medications Medication Drug Class(es) Dates Sig (Normalized) Sig (Original) metFORMIN hydrochloride 500 mg oral tablet (1 source) Biguanide Start: 09-22-2020 take 500 mg by mouth twice daily Metformin Active 500 MG PO TWICE A DAY 60 September 22, 2020 1:00am Problems Problem Classification Problem Date Documented Date Episodic/Chronic Abdominal pain (1 source) Epigastric pain; Translations: [Epigastric pain] 02-01-2023 Episodic Cardiac arrest and ventricular fibrillation (1 source) Cardiorespiratory arrest with successful resuscitation; Translations: [Cardiac arrest, cause unspecified] 09-20-2020 Chronic Nausea and vomiting (1 source) Vomiting; Translations: [Vomiting, unspecified] 02-01-2023 Episodic Nonspecific chest pain (2 sources) Chest pain; Translations: [Chest pain, unspecified] Onset: 02-10-2023 02-01-2023 Episodic Open wounds of extremities (2 sources) Laceration of wrist without foreign body; Translations: [Laceration without foreign body of left wrist, initial encounter] 12-04-2020 Episodic Substance-related disorders (1 source) Heroin overdose; Translations: [Poisoning by heroin, accidental (unintentional), initial encounter] 09-20-2020 Episodic Results Test Name Value Interpretation Reference Range Facility D-Dimer Quantitative (DVT/PE )on 02-02-2023 D-DIMER QUANT 0.54 FEU/ug/m Invalid Interpretation Code 0.27-0.49 [facility] Comment on above: Result Comment: D-Di cheikh ELEVATED (>0.49): Additional studies and clinical assessments are indicated to conclude diagnosis of: Deep Vein Thrombosis (DVT) or Pulmonary Embolism (PE) CRITICAL VALUE VERIFIED. CALLED TO [employer] 02/01/23 2220 Kavitha Abernathy. RESULTS READ BACK BY SAME . Performed By: #### L 501.5425, L100.0100, L500.2500 #### [facility] Laboratory [address] [place], [place], [address] 12 Lead EKGon 02-01-2023 12 Lead EKG [facility] Cardiovascular Services [address] [place] [address] 12 Lead EKG 02/01/23 1805 MR#: [id number] Acct: [id number] Name: ADRYAN SINGER Rep #: [id number] : 1970 52 From: Wally Pichardo MD Attending Dr: Status: DEP ER Ordering Dr: Gael Cope MD Date: 02/01/23 Location: ED Sex: M C Admitted: Test Reason : CP Blood Pressure : / mmHG Vent. Rate : 088 BPM Atrial Rate : 088 BPM P-R Int : 146 ms QRS Dur : 084 ms QT Int : 344 ms P-R-T Axes : 024 -06 053 degrees QTc Int : 416 ms Normal sinus rhythm Normal ECG Confirmed by MARINO ARAGON, KEENAN ([id number]), video editor CEDRIC CARLIN ([id number]) on 02/06/2023 12:49:59 PM Referred By: DAVE/MARTINEZ Confirmed By:NATIVIDAD PICHARDO MD 02/06/23 1250 Date Wally Pichardo MD CC: Dr. 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 Signed Normal [facility] Absolute lymphocyte countOrd ered By: Gael Cope on 02-01-2023 Lymphocytes Auto (Unsp spec) [#/Vol] 2.97 10*3/uL 0.83-4.51 [facility] Basic Metabolic Profile (BMP )on 02-01-2023 BUN/CRE 11.3 RATIO Normal 10-20 [facility] Comment on above: Order Comment: 1 Y Performed By: #### L 501.5425, L100.0100, L500.2500 #### [facility] Laboratory [address] [place], [address] CA,Total 9.0 mg/dL Normal 8.5-10.1 [facility] Comment on above: Order Comment: 1 Y Performed By: #### L 501.5425, L100.0100, L500.2500 #### [facility] Laboratory [address] [place], [address] Chloride [Moles/Vol] 109 mmol/L High 98-107 [facility] Comment on above: Order Comment: 1 Y Performed By: #### L 501.5425, L100.0100, L500.2500 #### [facility] Laboratory [address] [place], [address] CO2 [Moles/Vol] 25.0 mmol/L Normal 21.0-32.0 [facility] Comment on above: Order Comment: 1 Y Performed By: #### L 501.5425, L100.0100, L500.2500 #### [facility] Laboratory [address] [place], [address] Creatinine [Mass/Vol] 0.88 mg/dL Normal 0.70-1.30 [facility] Comment on above: Order Comment: 1 Y Result Comment: The validity of the calculated GFR GFRAA in patients over 70 years has not been determined. Clinical correlation is essential. Performed By: #### L 501.5425, L100.0100, L500.2500 #### [facility] Laboratory [address] [place], [address] ECRCL 106.55 ml/min Normal [facility] Comment on above: Order Comment: 1 Y Performed By: #### L 501.5425, L100.0100, L500.2500 #### [facility] Laboratory [address] [place], [address] EST GFR - AA 116 mL/min Normal >60 [facility] Comment on above: Order Comment: 1 Y Result Comment: Afri can Tongan GFR Calc Performed By: #### L 501.5425, L100.0100, L500.2500 #### [facility] Laboratory [address] [place], [address] GAP 5 Normal 5-15 [facility] Comment on above: Order Comment: 1 Y Performed By: #### L 501.5425, L100.0100, L500.2500 #### [facility] Laboratory [address] [place], [address] GFR/1.73 sq M.predicted among non-blacks MDRD (S/P/Bld) [Vol rate/Area] 96 mL/min/{1.73_m2} Normal >60 [facility] Comment on above: Order Comment: 1 Y Result Comment: Non- GFR Calc Performed By: #### L 501.5425, L100.0100, L500.2500 #### [facility] Laboratory [address] [place], [address] Glucose [Mass/Vol] 179 mg/dL High 74-106 [facility] Comment on above: Order Comment: 1 Y Result Comment: Fast ing Glucose result greater than or equal to 126 mg/dL suggests DIABETES MELLITUS per A.D.A. criteria. Performed By: #### L 501.5425, L100.0100, L500.2500 #### [facility] Laboratory [address] [place], [address] Potassium [Moles/Vol] 3.6 mmol/L Normal 3.5-5.1 [facility] Comment on above: Order Comment: 1 Y Performed By: #### L 501.5425, L100.0100, L500.2500 #### [facility] Laboratory [address] [place], [address] Sodium [Moles/Vol] 139 mmol/L Normal 136-145 [facility] Comment on above: Order Comment: 1 Y Performed By: #### L 501.5425, L100.0100, L500.2500 #### [facility] Laboratory [address] [place], [address] Urea nitrogen [Mass/Vol] 10 mg/dL Normal 7-18 [facility] Comment on above: Order Comment: 1 Y Performed By: #### L 501.5425, L100.0100, L500.2500 #### [facility] Laboratory [address] [place], [address] Basophil percentageOrdered B y: Gael Cope on 02-01-2023 Basophils/100 WBC (Bld) 0.3 % 0-1 [facility] Bilirubin [Mass/Vol] 0.40 mg/dL 0.20-1.00 [facility] Comment on above: For patients on eltr ombopag therapy, use of Dimension [place] TBIL is not recommended. Chloride [Moles/Vol] 109 mmol/L 98-107 [facility] Eosinophils/100 WBC (Bld) 0.8 % 0-5 [facility] Glucose [Mass/Vol] 179 mg/dL 74-106 [facility] Comment on above: Fasting Glucose resu lt greater than or equal to 126 mg/dL suggests DIABETES MELLITUS per A.D.A. criteria. Neutrophils (Bld) [#/Vol] 15.9 10*3/uL 2.0-7.7 [facility] Neutrophils/100 WBC (Bld) 77.7 % 47-70 [facility] Potassium [Moles/Vol] 3.6 mmol/L 3.5-5.1 [facility] Protein [Mass/Vol] 6.9 g/dL 6.4-8.2 [facility] Sodium [Moles/Vol] 139 mmol/L 136-145 [facility] WBC (Bld) [#/Vol] 20.5 10*3/uL 4.4-11.[address] [facility] Blood erythrocytes count (nu mber/volume)Ordered By: Gael Cope on 02-01-2023 RBC (Bld) [#/Vol] 5.41 10*6/uL 4.6-6.[address] [facility] Blood hemoglobin measurement (mass/volume)Ordered By: Gael Cope on 02-01-2023 Hemoglobin (Bld) [Mass/Vol] 17.6 g/dL 13.0-16.5 [facility] Blood lymphocytes/100 leukoc ytesOrdered By: Gael Cope on 02-01-2023 Lymphocytes/100 WBC (Bld) 14.5 % 19-41 [facility] Blood monocytes/100 leukocyt esOrdered By: Gael Cope on 02-01-2023 Monocytes/100 WBC (Bld) 6.3 % 0-10 [facility] Blood platelet mean volumeOr dered By: Gael Cope on 02-01-2023 Platelet mean volume (Bld) [Entitic vol] 8.8 fL 6.2-12.0 [facility] CBC W/Diff, Automatedon Absolute Lymph 2.97 X10 3/uL Normal 0.83-4.51 [facility] Comment on above: Performed By: #### L 501.5425, L100.0100, L500.2500 #### [facility] Laboratory [address] [place], [address] Absolute Neut 15.9 X10 3/uL High 2.0-7.7 [facility] Comment on above: Performed By: #### L 501.5425, L100.0100, L500.2500 #### [facility] Laboratory [address] [place], [address] Basophils/100 WBC (Bld) 0.3 % Normal 0-1 [facility] Comment on above: Performed By: #### L 501.5425, L100.0100, L500.2500 #### [facility] Laboratory [address] [place], [address] Eosinophils/100 WBC (Bld) 0.8 % Normal 0-5 [facility] Comment on above: Performed By: #### L 501.5425, L100.0100, L500.2500 #### [facility] Laboratory [address] [place], [address] Erythrocyte distribution width (RBC) [Ratio] 13.0 % Normal 11.6-14.6 [facility] Comment on above: Performed By: #### L 501.5425, L100.0100, L500.2500 #### [facility] Laboratory [address] [place], [address] Hematocrit (Bld) [Volume fraction] 52.1 % Normal 40-54 [facility] Comment on above: Performed By: #### L 501.5425, L100.0100, L500.2500 #### [facility] Laboratory [address] [place], [address] Hemoglobin (Bld) [Mass/Vol] 17.6 g/dL High 13.0-16.5 [facility] Comment on above: Performed By: #### L 501.5425, L100.0100, L500.2500 #### [facility] Laboratory [address] [place], [address] IG% 0.400 Normal 0.0-0.9 [facility] Comment on above: Result Comment: IG% - Immature Granulocytes (promyelocytes, myelocytes and metamyelocytes) > 1% indicates that a LEFT SHIFT is Present. Performed By: #### L 501.5425, L100.0100, L500.2500 #### [facility] Laboratory [address] [place], [address] Lymphocytes/100 WBC (Bld) 14.5 % Low 19-41 [facility] Comment on above: Performed By: #### L 501.5425, L100.0100, L500.2500 #### [facility] Laboratory [address] [place], [address] MCH (RBC) [Entitic mass] 32.5 pg High 27.0-32.0 [facility] Comment on above: Performed By: #### L 501.5425, L100.0100, L500.2500 #### [facility] Laboratory [address] [place], [address] MCHC (RBC) [Mass/Vol] 33.8 g/dL Normal 32-36 [facility] Comment on above: Performed By: #### L 501.5425, L100.0100, L500.2500 #### [facility] Laboratory [address] [place], [address] MCV (RBC) [Entitic vol] 96.3 fL High 80-94 [facility] Comment on above: Performed By: #### L 501.5425, L100.0100, L500.2500 #### [facility] Laboratory [address] [place], [address] Monocytes/100 WBC (Bld) 6.3 % Normal 0-10 [facility] Comment on above: Performed By: #### L 501.5425, L100.0100, L500.2500 #### [facility] Laboratory [address] [place], [address] Neutrophils/100 WBC (Bld) 77.7 % High 47-70 [facility] Comment on above: Performed By: #### L 501.5425, L100.0100, L500.2500 #### [facility] Laboratory [address] [place], [address] Nucleated RBC (Bld) [#/Vol] 0 10*3/uL Normal 0-5 [facility] Comment on above: Performed By: #### L 501.5425, L100.0100, L500.2500 #### [facility] Laboratory [address] [place], [address] Platelet mean volume (Bld) [Entitic vol] 8.8 fL Normal 6.2-12.0 [facility] Comment on above: Performed By: #### L 501.5425, L100.0100, L500.2500 #### [facility] Laboratory [address] [place], [address] Platelets (Bld) [#/Vol] 311 10*3/uL Normal 150-450 [facility] Comment on above: Performed By: #### L 501.5425, L100.0100, L500.2500 #### [facility] Laboratory [address] [place], [address] RBC (Bld) [#/Vol] 5.41 10*6/uL Normal 4.6-6.[address] [facility] Comment on above: Performed By: #### L 501.5425, L100.0100, L500.2500 #### [facility] Laboratory [address] [place], [address] RDW SD 45.4 fl High 35.1-43.9 [facility] Comment on above: Performed By: #### L 501.5425, L100.0100, L500.2500 #### [facility] Laboratory [address] [place], [address] WBC (Bld) [#/Vol] 20.5 10*3/uL High 4.4-11.[address] [facility] Comment on above: Performed By: #### L 501.5425, L100.0100, L500.2500 #### [facility] Laboratory [address] [place], [address] CTA Chest W/WO Contraston CTA Chest W/WO Contrast [facility] Imaging Services [address] [place] [address] CTA Chest W/WO Contrast MR#: [id number] Acct: [id number] Name: ADRYAN SINGER Rep #: [id number] : 1970 M 52 From: Yeyo Zhou MD PCP: Care Physician,No Primary Status: REG ER Study: CTA Chest W/WO Contrast Date of Exam: 02/01/23 Exam# [id number] Ordering Dr: Gael Cope MD STUDY: CTA CHEST REASON FOR EXAM: Male, 52 years old. Right sided upper chest pain. RADIATION DOSAGE (If Supplied By Facility): CTDIvol = ( 12.73 ) mGy, DLP = ( 479.89 ) mGycm TECHNIQUE: The examination was performed with the intravenous administration of ISOVUE 370-100ml. Post-processing of the angiographic images was performed, with multiplanar reformation and 3D reconstruction. Individualized dose optimization techniques were used for this CT. COMPARISON: CT angiogram performed 2 hours earlier FINDINGS: Normal enhancement of the main pulmonary artery and right and left pulmonary arteries. Normal enhancement of the bilateral peripheral pulmonary arteries. There is no demonstrated pulmonary embolism. Normal thoracic aorta and visualized great vessels. There is no demonstrated aortic dissection. Normal heart and pericardium. Normal mediastinum. Normal hilar regions. Normal visualized trachea and bronchi. Small bilateral pleural effusions with atelectasis and scarring. Normal chest wall structures. CT/CTA Chest W/WO Contrast IMPRESSION: Normal CTA chest examination, without a demonstrated pulmonary embolism or arterial dissection. Redemonstrated small pleural effusions with overlying atelectasis and scarring. Electronically Signed: Yeyo Zhou MD at 21:59 EDT , CC: Dr. 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 Yeyo Zhou MD on 02/01/23 at 1956 CTA THORAX/ABDOMEN/PELVIS INDICATION: Chest pain, vomiting, suspect dissection COMPARISON: None. TECHNIQUE: Helical axial scans were obtained through the chest, abdomen, and pelvis during IV contrast infusion, followed by 100 mL saline flush. Coronal reformat images as well as 3-D rotational reconstruction of aorta and in plane reconstructions of right and left iliac arteries were obtained. CT scan done according to ALARA (As Low As Reasonably Achievable). CONTRAST: 100 mL of Omnipaque (350 mmol/mL) was administered IV with 0 mL discarded. FINDINGS: CTA Pulmonary arteries: Superior segment right lower quadrant lobe pulmonary artery filling defect (series 2, image 61). Thoracic aorta: No aneurysm or dissection. No atherosclerotic calcific plaque noted. Abdominal aorta: No aneurysm or dissection. Infrarenal mostly soft plaque. Iliofemoral arteries: Widely patent Renal arteries: Widely patent Celiac artery: Widely patent SMA: Widely patent FCO: Widely patent CT Lungs and pleura: Small right and trace left pleural effusions with associated atelectasis. Bilateral lower lung areas of scarring. No acute infiltrates or nodules. No significant emphysematous changes. Mediastinum and pulmonary cj: Diffuse circumferential esophageal thickening. No mass or adenopathy. Heart: Normal heart size. No pericardial effusion. Liver and spleen: Normal size. No mass. Gallbladder: No calcified stones or wall thickening identified. Bile ducts: No biliary dilatation. Pancreas: No mass or enlargement. No pancreatic fluid collections. Adrenals and kidneys: No adrenal masses. Normal renal contours. Bilateral renal cysts. No stones identified. No hydronephrosis. Lymph nodes: No adenopathy. Bowel and mesentery: Small fat-containing hiatal hernia. There is a normal appearance of the stomach and small bowel. No areas of bowel wall thickening or inflammation are noted. Appendix is normal. Peritoneal cavity: No ascites. Pelvic structures: A small amount of radiodense material layers in the urinary bladder.. Body wall: No masses or hernias. Skeletal structures: Normal thoracolumbar vertebral alignment.. 02/01/231955 Date cc: Dr. 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 * Signed ADDENDUM by Dr. Yeyo Zhou MD on 02/01/[address]/CTA Chst, Abd, Pel W and/or WO IMPRESSION: 1. Right lower lobe superior segment pulmonary artery embolus. 2. Radiodense layering material in the urinary bladder may represent calcium, blood, or malignancy. 3. Small bilateral pleural effusions with atelectasis and lung scarring. 4. No finding of aortic dissection. N.B. : The above Results were Read Back by Yeyo Zhou MD to Gael Cope MD, and understanding confirmed on 02/01/2023 20:16:39 (ET). Electronically Signed: Yeyo Zhou MD at 19:56 EDT , 02/01/232022 Date cc: Dr. 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 * Signed CTA THORAX/ABDOMEN/PELVIS INDICATION: Chest pain, vomiting, suspect dissection COMPARISON: None. TECHNIQUE: Helical axial scans were obtained through the chest, abdomen, and pelvis during IV contrast infusion, followed by 100 mL saline flush. Coronal reformat images as well as 3-D rotational reconstruction of aorta and in plane reconstructions of right and left iliac arteries were obtained. CT scan done according to ALARA (As Low As Reasonably Achievable). CONTRAST: 100 mL of Omnipaque (350 mmol/mL) was administered IV with 0 mL discarded. FINDINGS: CTA Pulmonary arteries: Superior segment right lower quadrant lobe pulmonary artery filling defect (series 2, image 61). Thoracic aorta: No aneurysm or dissection. No atherosclerotic calcific plaque noted. Abdominal aorta: No aneurysm or dissection. Infrarenal mostly soft plaque. Iliofemoral arteries: Widely patent Renal arteries: Widely patent Celiac artery: Widely patent SMA: Widely patent FCO: Widely patent CT Lungs and pleura: Small right and trace left pleural effusions with associated atelectasis. Bilateral lower lung areas of scarring. No acute infiltrates or nodules. No significant emphysematous changes. Mediastinum and pulmonary cj: Diffuse circumferential esophageal thick (more content not included)... Normal [facility] Chest 1 View (Portable)on Chest 1 View (Portable) [facility] Imaging Services [address] [place] [address] Chest 1 View (Portable) MR#: [id number] Acct: [id number] Name: ADRYAN SINGER Rep #: [id number] : 1970 M 52 From: Yeyo Zhou MD PCP: Care Physician,No Primary Status: REG ER Study: Chest 1 View (Portable) Date of Exam: 02/01/23 Exam# [id number] Ordering Dr: Gael Cope MD INDICATION: Chest pain EXAMINATION/TECHNIQUE: X-RAY - XR Chest 1 View COMPARISON: 09/20/2020 FINDINGS: LUNGS: Right lung base atelectasis/scarring. No consolidation, edema or effusion. No pneumothorax. MEDIASTINUM AND CARDIOVASCULAR STRUCTURES: Cardiac silhouette not enlarged. Central airways and mediastinal contour are unremarkable. RAD/Chest 1 View (Portable) IMPRESSION: Right lung base atelectasis/scarring. Electronically Signed: Yeyo Zhou MD at 19:08 EDT , CC: Dr. 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: Signed Normal [facility] Determination of erythrocyte mean corpuscular volume (MCV)Ordered By: Gael Cope on 02-01-2023 MCV (RBC) [Entitic vol] 96.3 fL 80-94 [facility] Direct bilirubinOrdered By: Gael Cope on 02-01-2023 Bilirubin.direct [Mass/Vol] 0.09 mg/dL 0.00-0.30 [facility] Emergency Department Summary on 02-01-2023 Emergency Department Summary [facility] Medical Records Department [address] [place] [address] Emergency Department Summary 02/01/23 MR#: [id number] Acct: [id number] Name: ADRYAN SINGER Rep #: [id number] : 1970 52 From: Gael Cope MD PCP: Care Physician,No Primary Status:REG ER Location: ED HPI HPI - GI History of Present Illness Chief Complaint: Chest Pain Detail of Chief Complaint: Epigastric abdominal pain radiating into his chest and back Informant: patient and spouse/S.O. Abdominal Pain/Flank Pain Onset: Today and Hours Context: Gradual Onset Timing: Continuous Quality: Cramping Location: Epigastric Current Severity: Moderate Maximum Severity: Moderate Worsened by: Nothing Relieved by: Nothing Nausea/Vomiting/Emesis GI Symptom: Positive for Nausea and Vomiting Onset: Today and Hours Severity: Moderate Diarrhea/Melena/Hemato chezia GI Symptom: Negative for Diarrhea, Melena or Hematochezia Associated Symptoms Associated Symptoms: Negative for Dysuria, Frequency or Hematuria Narrative Narrative: 52-year-old male missing a past medical history. Prior brain surgery for trauma x2. Said around 3 AM this morning he got epigastric abdominal pain started having nausea and vomiting with it. It then radiated to the left side of his chest and into his back. No prior history. He has no cardiac history. He does smoke. He denies alcohol use. Prior to today he said he is been feeling fine. He denies any recent exertional chest pain or exertional dyspnea. No leg pain or swelling. No history of aneurysms. He is not treated for high blood pressure. He denies prior abdominal surgeries. Prior similar symptoms: No Recent Illness/Hospitalizatio n: No PFSH PFSH Medical History no medical history no medical history Home Medications metformin 500 mg tablet 500 mg PO BID #60 tabs 09/22/20 [Rx Last Taken Unknown] Allergy/AdvReac Type Severity Reaction Status Date / Time Penicillins [PCN] Allergy Hives Verified 02/01/23 18:01 shellfish derived AdvReac Nausea/Vom/ Verified 02/01/23 18:01 Diarrhea Social History Smoking Status: Current every day smoker tobacco type: cigarettes ROS ROS ED ROS Narrative Epigastric abdominal pain. Back and chest pain. Nausea and vomiting. Review of Systems ROS Unobtainable: Denies due to encephalopathy Constitutional Constitutional ED: Denies chills or fever(s) ENT ENT ED: Denies ear pain Cardiovascular Cardiovascular: Reports chest pain; Denies palpitations or racing heartbeat Respiratory/Chest Respiratory/Chest: Denies cough or dyspnea Gastrointestinal Gastrointestinal: Reports abdominal pain, nausea and vomiting; Denies constipation, diarrhea or melena Genitourinary Genitourinary ED: Denies dysuria or hematuria Musculoskeletal Musculoskeletal: Reports back pain; Denies arthralgias Integumentary Denies abscess Neurologic Neurologic: Denies headache(s) Psychiatric Psychiatric: Denies anxiety Hematologic/Lymphatic Hematologic/Lymphatic: Denies easy bleeding Allergic/Immunologic Allergic/Immunologic ED: Denies mouth swelling or tongue swelling EXAM Physical Exam Narrative Exam Narrative: 82-year-old male vital signs stable afebrile. Pulse ox 97% room air no signs hypoxia. Initial pressure 114/89. He does not look septic toxic or in any distress. HEENT exam unremarkable. Neck nontender no JVD. Lungs clear to auscultation bilaterally. Heart regular rhythm no murmur. Chest wall no significant tenderness. Normal inspection. Abdomen soft nondistended normal bowel sounds no peritoneal signs. Really no significant epigastric or right upper quadrant tenderness. No Chen sign. Right lower quadrant nontender. No distention. No pulsatile mass. Moving all 4 extremities. Calves are nontender without edema or cords. Radial pulses are equal symmetrical. 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 Neurologically is awake and alert with no focal motor deficits. Const Vital Signs: 02/01/23 18:00 02/01/23 18:04 02/01/23 18:04 Temperature 97.3 F L Temperature Source Temporal Pulse Rate 84 85 Respiratory Rate 18 16 Respiratory Effort Normal Respiratory Pattern Normal Blood Pressure 114/89 H 135/95 H Blood Pressure Mean 97 108 Pulse Ox 97 94 Oxygen Delivery Method Room Air Room Air 02/01/23 18:23 02/01/23 19:54 02/01/23 21:54 Temperature Temperature Source Pulse Rate 81 80 Respiratory Rate 21 H 16 Respiratory Effort Respiratory Pattern Blood Pressure 112/69 136/95 H Blood Pressure Mean 83 108 Pulse Ox 95 98 Oxygen Delivery Method Room Air Room Air Room Air Positive well nourished; Negative for well developed, obese, cachectic, contractures or unkempt General Appearance ED: NAD; Ne (more content not included)... Normal [facility] Hematocrit Auto (Bld) [Volum e fraction]Ordered By: Gael Cope on 02-01-2023 Hematocrit (Bld) [Volume fraction] 52.1 % 40-54 [facility] L501.4020on 02-01-2023 TROPONIN-I HS 5 pg/mL Normal 3.0-78.0 [facility] Comment on above: Result Comment: Plea se Note: New Test Units and Gender Specific Reference Ranges. For more information see Policy Stat Procedure [place] High Sensitivity Troponin (TNIH) and attachments. Performed By: #### L 501.5425, L100.0100, L500.2500 #### [facility] [address] [place], [place], [address] L501.5425on 02-01-2023 TROPONIN-I HS 5 pg/mL Normal 3.0-78.0 [facility] Comment on above: Order Comment: 1 Y Result Comment: Plea se Note: New Test Units and Gender Specific Reference Ranges. For more information see Policy Stat Procedure [place] High Sensitivity Troponin (TNIH) and attachments. Performed By: #### L 501.5425, L100.0100, L500.2500 #### [facility] [address] [place], [place], [address] Laboratory - Chemistry and C hemistry - challengeOrdered By: Gael Cope on 02-01-2023 ALP [Catalytic activity/Vol] 124 U/L 45-117 [facility] ALT [Catalytic activity/Vol] 23 U/L 16-61 [facility] CO2 [Moles/Vol] 25.0 mmol/L 21.0-32.0 [facility] Globulin (S) [Mass/Vol] 3.8 g/dL 2.2-4.2 [facility] Lipase [Catalytic activity/Vol] 23 U/L - [facility] Comment on above: Please note:LIPASE r evised reference range effective 22. New Lipase methodology. Expected to produce lower values than the previous assay method. NEW Reference Range: 13 - 75 U/L Urea nitrogen/Creatinine [Mass ratio] 11.3 mg/mg 10-20 [facility] Laboratory - Hematology and Cell countsOrdered By: Gael Cope on 02-01-2023 Erythrocyte distribution width (RBC) [Entitic vol] 45.4 fL 35.1-43.9 [facility] Erythrocyte distribution width (RBC) [Ratio] 13.0 % 11.6-14.6 [facility] Immature granulocytes/100 WBC (Bld) 0.400 % 0.0-0.9 [facility] Comment on above: IG% - Immature Granu locytes (promyelocytes, myelocytes and metamyelocytes) > 1% indicates that a LEFT SHIFT is Present. MCH (RBC) [Entitic mass] 32.5 pg 27.0-32.0 [facility] Nucleated RBC/100 WBC (Bld) [Ratio] 0 % 0-5 [facility] Lipaseon 02-01-2023 Lipase [Catalytic activity/Vol] 23 U/L Normal - [facility] Comment on above: Result Comment: Edd acosta note: LIPASE revised reference range effective 22. New Lipase methodology. Expected to produce lower values than the previous assay method. NEW Reference Range: 13 - 75 U/L Performed By: #### L 501.2450 #### [facility] [address] [place], [address] Liver Profileon 02-01-2023 Albumin [Mass/Vol] 3.1 g/dL Low 3.2-5.0 [facility] Comment on above: Performed By: #### L 501.5425, L100.0100, L500.2500 #### [facility] [address] [place], [address] ALK P 124 U/L High 45-117 [facility] Comment on above: Performed By: #### L 501.5425, L100.0100, L500.2500 #### [facility] [address] [place], [address] ALT [Catalytic activity/Vol] 23 U/L Normal 16-61 [facility] Comment on above: Performed By: #### L 501.5425, L100.0100, L500.2500 #### [facility] [address] [place], [address] AST [Catalytic activity/Vol] 12 U/L Low 15-37 [facility] Comment on above: Performed By: #### L 501.5425, L100.0100, L500.2500 #### [facility] [address] [place], [address] Bilirubin [Mass/Vol] 0.40 mg/dL Normal 0.20-1.00 [facility] Comment on above: Result Comment: For patients on eltrombopag therapy, use of Dimension [place] TBIL is not recommended. Performed By: #### L 501.5425, L100.0100, L500.2500 #### [facility] [address] [place], [address] Bilirubin.direct [Mass/Vol] 0.09 mg/dL Normal 0.00-0.30 [facility] Comment on above: Performed By: #### L 501.5425, L100.0100, L500.2500 #### [facility] [address] [place], [address] Globulin (S) [Mass/Vol] 3.8 g/dL Normal 2.2-4.2 [facility] Comment on above: Performed By: #### L 501.5425, L100.0100, L500.2500 #### [facility] [address] [place], [address] T PROT 6.9 g/dL Normal 6.4-8.2 [facility] Comment on above: Performed By: #### L 501.5453, L100.0100, L500.2529 #### [facility] [address] [place], [address] MCHC Auto (RBC) [Mass/Vol]Or dered By: Gael Cope on 02-01-2023 MCHC (RBC) [Mass/Vol] 33.8 g/dL 32-36 [facility] No Panel InformationOrdered By: Gael Cope on 02-01-2023 Troponin I High Sensitivity 5 pg/mL 3.0-78.0 [facility] Comment on above: Please Note: New Juanis t Units and Gender Specific Reference Ranges. For more information see Policy Stat Procedure [place] High Sensitivity Troponin (TNIH) and attachments. D-Dimer Quantitative (PE/DVT) 0.54 FEU/ug/m 0.27-0.49 [facility] Comment on above: D-Dimer ELEVATED (>0 .49): Additional studies and clinicalassessments are indicated to conclude diagnosis of:Deep Vein Thrombosis (DVT) or Pulmonary Embolism (PE)CRITICAL VALUE VERIFIED. CALLED TO [id number] Kavitha Abernathy.RESULTS READ BACK BY SAME . Estimated Creatinine Clearance Calc 106.55 ml/min [facility] Estimated GFR (MDRD) Amer 116 mL/min >60 [facility] Comment on above: GFR Calc Estimated GFR (MDRD) Non-Af Amer 96 mL/min >60 [facility] Comment on above: Non- GFR Calc Platelets bldOrdered By: Bhavesh Cope on 02-01-2023 Platelets (Bld) [#/Vol] 311 10*3/uL 150-450 [facility] Serum or plasma albumin joan urement (mass/volume)Ordered By: Gael Cope on 02-01-2023 Albumin [Mass/Vol] 3.1 g/dL 3.2-5.0 [facility] Serum or plasma calcium joan urement (mass/volume)Ordered By: Gael Cope on 02-01-2023 Calcium [Mass/Vol] 9.0 mg/dL 8.5-10.1 [facility] Serum or plasma creatinine m easurement (mass/volume)Ordered By: Gael Cope on 02-01-2023 Creatinine [Mass/Vol] 0.88 mg/dL 0.70-1.30 [facility] Comment on above: The validity of the calculated GFR & GFRAA in patients over 70 years has not been determined. Clinical correlation is essential. Serum or plasma urea nitroge n measurement (mass/volume)Ordered By: Gael Cope on 02-01-2023 Urea nitrogen [Mass/Vol] 10 mg/dL 7-18 [facility] Thin prep Papanicolaou smear with manual screeningOrdered By: Gael Cope on 02-01-2023 Thin prep Papanicolaou smear with manual screening 12 U/L 15-37 [facility] Thin prep Papanicolaou smear with manual screening 5 5-15 [facility] Venous Duplex Imag/Ramsey Extre mon 02-01-2023 Venous Duplex Imag/Ramsey Extrem [facility] [address] [place] [address] Venous Duplex Imag/Ramsey Extrem MR#: [id number] Acct: [id number] Name: ADRYAN SINGER Rep #: [id number] : 1970 M 52 From: Yeyo Zhou MD PCP: Care Physician,No Primary Status: REG ER Study: Venous Duplex Imag/Ramsey Extrem Date of Exam: Exam# [id number] Ordering Dr: Gael Cope MD INDICATION: CHEST PAIN/ PE EXAMINATION: Ultrasound US Venous Duplex LE Bilat Complete TECHNIQUE: Calderon scale, pulse wave, and color flow Doppler imaging was performed of the lower extremity venous system. The bilateral greater saphenous, common femoral, femoral, and popliteal veins were interrogated. COMPARISON: None FINDINGS: There is normal compression, augmentation, and signal throughout the visualized deep lower extremity veins. The right and left deep femoral veins are not interrogated. Right lesser saphenous vein noncompressibility with internal echo and lack of Doppler flow. No mass or fluid collection. US/Venous Duplex Imag/[place] Extrem IMPRESSION: Right lesser saphenous vein thrombus. No sonographic evidence of deep venous thrombosis. Electronically Signed: Yeyo Zhou MD at 22:31 EDT , CC: Dr. 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: Signed Normal [facility] Vital Signs Date Time Vital Sign Value Performing Clinician Faci lity 02-01-2023 21:54-0400 Diastolic blood pressure 95 mm[Hg] [facility] 02-01-2023 21:54-0400 Heart rate 80 /min [facility] 02-01-2023 21:54-0400 Respiratory rate 16 /min [facility] 02-01-2023 21:54-0400 SaO2% (BldA) [Mass fraction] 98 % [facility] 02-01-2023 21:54-0400 Systolic blood pressure 136 mm[Hg] [facility] 02-01-2023 18:00-0400 Body height 182.88 cm [facility] 02-01-2023 18:00-0400 Body mass index (BMI) [Ratio] 26.9 kg/m2 [facility] 02-01-2023 18:00-0400 Body temperature 97.3 [degF] [facility] 02-01-2023 18:00-0400 Body weight 90.26 kg [facility] Encounters Encounter Date Encounter Type Care Provider Facility Start: 02-01-2023 End: 02-02-2023 Emergency department patient visit Gael Cope Facility:[facility] Start: 02-01-2023 End: 02-01-2023 Emergency department patient visit [facility]Emergency Department Work Phone: Procedures Date Procedure Procedure Detail Performing Clinician Start: 02-01-2023 CT angiography of ch est with contrast Start: 02-01-2023 Plain chest X-ray Start: 02-01-2023 CT of thorax, abdome n and pelvis with contrast Plan of Treatment Date Care Activity Detail Author Start: 02-01-2023 [facility] Patient Education ED Chest Pain, Uncertain Cause ED Epigastric Pain Uncertain Cause [facility] Work Phone: Patient referral [facility] Work Phone: Payers Date Payer Category Payer Medicaid [id number] b 2023 Self-pay [id number] c 2005 Medicare MEDICARE PART A B [id number] Medicaid MEDICAID [id number] b Unknown [facility] [id number] Unknown [id number] Social History Date Type Detail Facility Start: 02-01-2023 Tobacco smoking status NHIS Unknown if ever smoked [facility] Start: 09-20-2020 None [facility] Start: 09-20-2020 Heroin [facility] Start: 05-21-2020 Spouse/ Signif icant Other [facility] Start: 12-04-2020 Cigarettes [facility] Start: 1970 Sex Assigned At Male W [facility] [place] Mental Status Date Assessment Result Facility 02-01-2023 Cognitive function Awake;Alert;Appropriat e [facility] Work Phone: Discharge summary 02-01-2023 Note Date & Type Note Facility 02-01-2023 Discharge summary Note Date/Time February 01, 2023 6:38pm [facility] Medical Records Department [address] [place] [address] Emergency Department Summary 02/01/23 MR#: [id number] Acct: [id number] Name: LIZANDRO SINGERJuliann Maria Rep #:[id number] : 1970 52 From: Gael Cope MD PCP: Care Physician,No Primary Status :REG ER Location: ED HPI HPI - GI History of Present Illness Chief Complaint: Chest Pain Detail of Chief Complaint: Epigastric abdominal pain radiating into his chest and back Informant: patient and spouse/S.O. Abdominal Pain/Flank Pain Onset: Today and Hours Context: Gradual Onset Timing: Continuous Quality: Cramping Location: Epigastric Current Severity: Moderate Maximum Severity: Moderate Worsened by: Nothing Relieved by: Nothing Nausea/Vomiting/Emesis GI Symptom: Positive for Nausea and Vomiting Onset: Today and Hours Severity: Moderate Diarrhea/Melena/Hematochezia GI Symptom: Negative for Diarrhea, Melena or Hematochezia Associated Symptoms Associated Symptoms: Negative for Dysuria, Frequency or Hematuria Narrative Narrative: 52-year-old male missing a past medical history. Prior brain surgery for traumax2. Said around 3 AM this morning he got epigastric abdominal pain started having nausea and vomiting with it. It then radiated to the left side of his chest and into his back. No prior history. He has no cardiac history. He doessmoke. He denies alcohol use. Prior to today he said he is been feeling fine. He denies any recent exertional chest pain or exertional dyspnea. No leg pain or swelling. No history of aneurysms. He is not treated for high blood pressure. He denies prior abdominal surgeries. Prior similar symptoms: No Recent Illness/Hospitalization: No PFSH PFSH Medical History no medical history no medical history Home Medications metformin 500 mg tablet 500 mg PO BID #60 tabs 09/22/20 [Rx Last Taken Unknown] Allergy/AdvReac Type Severity Reaction Status Date / Time Penicillins [PCN] Allergy Hives Verified 02/01/23 18:01 shellfish derived AdvReac Nausea/Vom/ Verified 02/01/23 18:01 Diarrhea Social History Smoking Status: Current every day smoker tobacco type: cigarettes ROS ROS ED ROS Narrative Epigastric abdominal pain. Back and chest pain. Nausea and vomiting. Review of Systems ROS Unobtainable: Denies due to encephalopathy Constitutional Constitutional ED: Denies chills or fever(s) ENT ENT ED: Denies ear pain Cardiovascular Cardiovascular: Reports chest pain; Denies palpitations or racing heartbeat Respiratory/Chest Respiratory/Chest: Denies cough or dyspnea Gastrointestinal Gastrointestinal: Reports abdominal pain, nausea and vomiting; Denies constipation, diarrhea or melena Genitourinary Genitourinary ED: Denies dysuria or hematuria Musculoskeletal Musculoskeletal: Reports back pain; Denies arthralgias Integumentary Denies abscess Neurologic Neurologic: Denies headache(s) Psychiatric Psychiatric: Denies anxiety Hematologic/Lymphatic Hematologic/Lymphatic: Denies easy bleeding Allergic/Immunologic Allergic/Immunologic ED: Denies mouth swelling or tongue swelling EXAM Physical Exam Narrative Exam Narrative: 82-year-old male vital signs stable afebrile. Pulse ox 97% room air no signs hypoxia. Initial pressure 114/89. He does not look septic toxic or in any distress. HEENT exam unremarkable. Neck nontender no JVD. Lungs clear to auscultation bilaterally. Heart regular rhythm no murmur. Chest wall no significant tenderness. Normal inspection. Abdomen soft nondistended normal bowel sounds no peritoneal signs. Really no significant epigastric or right upper quadrant tenderness. No Chen sign. Right lower quadrant nontender. No distention. No pulsatile mass. Moving all 4 extremities. Calves are nontender without edema or cords. Radial pulses are equal symmetrical. 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 Neurologically is awake and alert with no focal motor deficits. Const Vital Signs: 02/01/23 18:00 02/01/23 18:04 02/01/23 18:04 Temperature 97.3 F L Temperature Source Temporal Pulse Rate 84 85 Respiratory Rate 18 16 Respiratory Effort Normal Respiratory Pattern Normal Blood Pressure 114/89 H 135/95 H Blood Pressure Mean 97 108 Pulse Ox 97 94 Oxygen Delivery Method Room Air Room Air 02/01/23 18:23 02/01/23 19:54 02/01/23 21:54 Temperature Temperature Source Pulse Rate 81 80 Respiratory Rate 21 H 16 Respiratory Effort Respiratory Pattern Blood Pressure 112/69 136/95 H Blood Pressure Mean 83 108 Pulse Ox 95 98 Oxygen Delivery Method Room Air Room Air Room Air Positive well nourished; Negative for well developed, obese, cachectic, contractures or unkempt General Appearance ED: NAD; Negative for unkempt, well developed, cachectic, contractures or pallor Nutritional Appearance: Negative for cachectic or obese HEENT Reports moist mucous membranes normocephalic and atraumatic; Negative for trauma or tenderness Eyes PERRL and EOMs intact bilaterally General Eye ED: Negative for pale conjunctiva, scleral icterus or other Neck no lymphadenopathy, supple and no JVD General: Negative for tenderness Carotids: Negative for other Lymph Lymphatic: Negative for other Resp normal respiratory effort and clear to auscultation bilaterally Effort and Inspection: Negative for respiratory distress Auscultation: Negative for rales, rhonchi or wheezes Cardio regular rate, regular rhythm, S1 normal heart sound, S2 normal heart sound and no murmurs Rate: Negative for bradycardia or tachycardic Rhythm: Negative for abnormal rhythm GI non-tender, non-distended and no masses Inspection: Negative for abdominal distention Auscultation: normoactive bowel sounds Palpation: soft; Negative for tender, guarding, rigid, hepatomegaly, splenomegaly, hernia, mass, pulsatile mass or rebound tenderness present Back/Spine no CVA tenderness General Back: Negative for CVA tenderness Cervical Spine: Negative for cervical spine tenderness Thoracic Spine / Upper Back: Negative for thoracic spinal tenderness Lumbar Spine / Lower Back: Negative for lumbar spinal tenderness Coccyx: Negative for other Extremity full ROM General Extremety ED: Negative for edema or tenderness General Extremity: Negative for edema Neuro CN's II-XII intact bilaterally, moves all extremities and No no sensory deficits noted Sensorium / Orientation: alert, oriented to person, oriented to place and oriented to time; Negative for orientation impaired, confused, lethargic or stuporous Motor Exam: strength 5/5 throughout Psych mental status grossly normal and thought process normal Appearance: Negative for unkempt Attitude: No agitated Mood & Affect: Negative for depressed, anxious or tearful Skin no wounds General Skin Exam: Negative for jaundice or pallor Lesions: no lesions Rashes: no rashes Trauma: Negative for abrasion Nails: Negative for discolored MDM MDM MDM Narrative Medical decision making narrative: 52-year-old male with epigastric abdominal pain radiating to his chest and back. Clinically ending this will end up being GI but concern would be cardiac etiology which I think is less likely or even dissection. Cardiac work-up will be done. Along with a lipase and liver enzymes. He will get a CTA of his chest and abdomen to be evaluated for possible dissection and I think is less likely also pancreatitis versus other etiologies. He did not want anything for pain. He will be given Zofran for nausea. CTA of the chest abdomen and pelvis showed no dissection but the radiologist thinks there may be a right lower lobe PE. He and I discussed the CTA results. Patient has no risk factors. Has never had a DVT or PE. There is no leg pain or swelling. The pain is not pleuritic. The pain was left-sided and he had nausea and vomiting with it. Clinically I think is very low risk for an actual PE. I discussed all this with the patient and his family. They want to make sure this is a PE before we subject him to 6 months of anticoagulation. I do not disagree. I am going to order a specific CTA of the chest. Also a D-dimer and a leg ultrasound. If that is all negative I am not going to put him on anticoagulation. Patient will also be given a bolus of saline due to the amount of contrast. The CTA of the chest alone did not show any pulmonary emboli. As read by the same radiologist to read the first. This clinically fits his picture and I never thought that he had a pulmonary emboli. He will not be treated with anticoagulation. I also had noninvasive venous studies done of both his legs and there was no DVT. There was a superficial thrombophlebitis on the right which she has had before. Patient is doing well at 10:14 PM. I do lengthy discussion both he and his family. He will be discharged home. History & Record Review Discussion w/independent historian: Patient Lab Data Attestation: I reviewed the patient's lab results. Lab results narrative: CBC shows a white count of 20,500. H&H is 17.6 and 52. He has had high white counts and hemoglobin as before. Platelets 311. Electrolytes are unremarkable gap of 5. Normal BUN and creatinine. Liver enzymes are normal. Alk phos 124. Lipase is normal at 23. Chest x-ray and EKG unremarkable. CTA of the chest is concerning for right lower lobe pulmonary emboli. Second troponin is normal at [address] of the chest alone did not show any PE. Labs: Laboratory Results - last 24 hr 02/01/23 02/01/23 18:20 20:55 WBC 20.5 H RBC 5.41 Hgb 17.6 H Hct 52.1 MCV 96.3 H MCH 32.5 H MCHC 33.8 RDW Std Deviation 45.4 H RDW Coeff of Yair 13.0 Plt Count 311 MPV 8.8 Immature Gran % (Auto) 0.400 Neut % (Auto) 77.7 H Lymph % (Auto) 14.5 L [place] % (Auto) 6.3 Eos % (Auto) 0.8 Baso % (Auto) 0.3 Absolute Neuts (auto) 15.9 H Absolute Lymphs (auto) 2.97 Nucleated RBC % 0 Sodium 139 Potassium 3.6 Chloride 109 H Carbon Dioxide 25.0 Anion Gap 5 BUN 10 Creatinine 0.88 Estim Creat Clear Calc 106.55 Est GFR (MDRD) Af Amer 116 Est GFR (MDRD) Non-Af 96 BUN/Creatinine Ratio 11.3 Glucose 179 H Calcium 9.0 Total Bilirubin 0.40 Direct Bilirubin 0.09 AST 12 L ALT 23 Alkaline Phosphatase 124 H Troponin I High Sens 5 5 Total Protein 6.9 Albumin 3.1 L Globulin 3.8 Lipase 23 Radiography Chest X-Ray - ED: 1 View, Read by ED Physician, Read by Radiologist, Heart, Lungs, Mediastinum, Bony Structures, No Acute Disease and Chronic Changes Diagnostic Testing: Clinical Impression(s) from Imaging Studies Chest/Abdomen/Pelvis CTA 02/01/23 18:28 IMPRESSION: 1. Right lower lobe superior segment pulmonary artery embolus. 2. Radiodense layering material in the urinary bladder may represent calcium, blood, or malignancy. 3. Small bilateral pleural effusions with atelectasis and lung scarring. 4. No finding of aortic dissection. Electronically Signed: Yeyo Zhou MD at 19:56 EDT Reading Location ID and State: [facility] / [place] Tel , Service support , ADDENDUM: 02/01/232022 IMPRESSION: 1. Right lower lobe superior segment pulmonary artery embolus. 2. Radiodense layering material in the urinary bladder may represent calcium, blood, or malignancy. 3. Small bilateral pleural effusions with atelectasis and lung scarring. 4. No finding of aortic dissection. N.B. : The above Results were Read Back by Yeyo Zhou MD to Gael Cope MD, and understanding confirmed on 02/01/2023 20:16:39 (ET). Electronically Signed: Yeyo Zhou MD at 19:56 EDT , Chest X-Ray 02/01/23 18:45 IMPRESSION: Right lung base atelectasis/scarring. Electronically Signed: Yeyo Zhou MD at 19:08 EDT , Chest CTA 02/01/23 21:14 IMPRESSION: Normal CTA chest examination, without a demonstrated pulmonary embolism or arterial dissection. Redemonstrated small pleural effusions with overlying atelectasis and scarring. Electronically Signed: Yeyo Zhou MD at 21:59 EDT , Rhythm Strip Rhythm Strip: Sinus Rhythm Rate: 88 Ectopy: None EKG Initial EKG: Attestation: I personally reviewed and interpreted this EKG as follows: Interpretation: Sinus Rhythm and No Acute Injury Pattern Comments: Normal sinus rhythm rate 88 no acute signs of MT or ischemia. Prior EKG tracings: not available for review Discharge Plan Triage Chief Complaint: Chest Pain ED Provider: Gael Cope Dx/Rx/DC Orders Clinical Impression: Chest pain, Vomiting, Abdominal pain, acute, epigastric Instructions: ED Chest Pain, Uncertain Cause, ED Epigastric Pain Uncertain Cause Prescriptions: No Action metformin 500 MG tablet 500 mg PO BID Qty: 60 1RF Primary Care Provider: Care Physician,No Primary Referrals: Michael Sharma MD [Med Staff - Dry Cleaning Supervisor] - 1-2 Weeks Care Physician,No Primary [Primary Care Provider] - Activity Restrictions/Additional Instructions: Your labs and CAT scan were unremarkable. We do not have a specific cause for your pain. The initial CAT scan was concerning for a possible blood clot in your right lower chest. And repeated the CAT scan to center specifically on your lungs there is no blood clot. Follow-up with a local primary care physician. Return if feeling worse. Disposition Disposition: Home, Self Care What to do if you have Problems For any increased pain, shortness of breath, bleeding, nausea or vomiting, chestpain, or any unexpected problems, contact your Primary Care Provider. Call [facility] ([phone]) or report to the closest Emergency Room. Call 911 if necessary. 02/01/232216 <Electronically signed by Gael Cope MD> Cosigner Signature (if applicable): CC: No Primary Care Physician ~ Signed [facility] Work Phone: Evaluation note Note Date & Type Note Facility Evaluation note No assessment information availa ble [facility] Work Phone: Hospital Discharge instructions Note Date & Type Note Facility Hospital Discharge instructions Additional Instructions Your labs and CAT scan were unremarkable. We do not have a specific cause for your pain. The initial CAT scan was concerning for a possible blood clot in your right lower chest. And repeated the CAT scan to center specifically on your lungs there is no blood clot. Follow-up with a local primary care physician. Return if feeling worse. [facility] Work Phone: Chief Complaint and Reason for Visit Chief Complaint CHEST PAIN Family History No Family History Records Found Relationship Condition Age at Onset Recorded Date/T josé manuel Unknown Family History?No pe rtinent history Unknown September 20, 2020 4:26pm Family History?No pe rtinent history Unknown September 20, 2020 4:26pm Family History?No pe rtinent history Unknown December 04, 2020 5:31pm Advance Directives No Advanced Directives Records Found Advance Directive Response Recorded Date/ Time Living Will No February 01, 2023 6 :04pm Power of Visual Display Associate No February 01, 2023 6:04pm Summary Purpose Additional Source Comments Care Teams (unrecognized sec tion and content) Team Status: Active Member Role Status Dates Dr. Kia Washburn MD Family Provider Active No Primary Care Physician Primary Care Provider Active Team Status: Inactive Member Role Status Dates No Primary Care Physician Primary Care Provider Active Dr. Gael Cope MD Emergency Provider Active Goals (unrecognized section and content) Goals may be documented in a n alternate section (unrecognized sect ion and content) No Status Records Found INFORMATION SOURCE (unrecogn ized section and content) DATE CREATED AUTHOR 02/11/2023 [facility] FOR RECORDS PERTAINING TO PATIENTS WHO ARE OR HAVE BEEN ENROLLED IN A CHEMICAL DEPENDENCY/SUBSTANCEABUSE PROGRAM, SOME INFORMATION MAY BE OMITTED. This clinical summary was aggregated from multiple sources. Caution should be exercised in using it in the provision of clinical care. This summary normalizes information from multiple sources, and as a consequence, information in this document may materially change the coding, format and clinical context of patient data. In addition, data may be omitted in some cases. CLINICAL DECISIONS SHOULD BE BASED ON THE PRIMARY CLINICAL RECORDS. [facility]. provides no warranty or guarantee of the accuracy or completeness of information in this document.
[2025-03-22 13:49] LABS: Mucous, Urine 0 SEEN /hpf (<or=2+); Red Blood Cells-Urine 0 SEEN /hpf (0-5); Squamous Epithelial Cells - UA 0 SEEN /hpf (0-5)
[2025-03-22 13:51] LABS: Hematocrit 45.1 % (40-54); Hemoglobin 15.8 g/dL (13.0-16.5); Immature Granulocytes Count 0.170 X10^3/uL (0.0-0.0); Mean Corp Hgb Conc 35.0 g/dL (32-36); Mean Corpuscular Volume 94.7 fL (80-94); Mean Platelet Vol. 9.0 fl (6.2-12.0); NRBC Flagged by Analyzer 0 % (0-5); POSITIVE DIFFERENTIAL YES; Platelet Count 282 K/mm3 (150-450); RBC Distribution Width CV 12.3 % (11.6-14.6); RBC Distribution Width SD 42.9 fl (35.1-43.9); Red Blood Count 4.76 M/mm3 (4.6-6.2); White Blood Count 19.3 K/mm3 (4.4-11.0)
[2025-03-22 13:52] LABS: Color, Urine Yellow (Yellow); Glucose, Dipstick 1000 mg/dl (Normal); Ketone-Dipstick Negative (Negative); Leukocyte Esterase-Dipstick Negative /ul (Negative); Nitrite-Dipstick Negative (Negative); Occult Blood-Urine 25 /ul (Negative); Protein-Dipstick 15 mg/dl (Negative); Specific Gravity, Urine 1.015 (1.002-1.030); Urine Bilirubin Dipstick Negative (Negative)
[2025-03-22 13:55] LABS: Differential Indicated SCAN CRITERIA MET
[2025-03-22] MEDS: Lidocaine 1% (20 ml mdv) 20 ML Vial INFILT (14:46)
[2025-03-22] MEDS: levoFLOXacin IV 750 MG/150 ML BAG 100 MG IV (14:46)
[2025-03-22 14:47] LABS: AST(SGOT) 25 U/L (<=37); Alanine Aminotransfer ALT/SGPT 27 U/L (<=46); Albumin, Serum 3.5 g/dL (3.5-5.0); Alkaline Phosphatase 136 U/L (40-129); Anion Gap 15 (5-15); BUN 10 mg/dL (4-19); BUN/Creat Ratio 10.2 RATIO (10-20); Calcium,Total 9.2 mg/dL (7.6-11.0); Carbon Dioxide 20.8 mmol/L (21.0-32.0); Chloride 97 mmol/L (98-108); Estimated Creatinine Clearance 105.46 ml/min (50-250); Globulin 3.7 g/dL (2.2-4.2); Glucose 331 mg/dL (70-99); Potassium 3.9 mmol/L (3.3-5.1)
--- NOTE | 2025-03-22 15:19 | PCM.HP.STD ---
HPI - General General Date of Admission: 03/22/25 Date of Service: 03/22/25 Chief Complaint: Right forearm abscess with cellulitis HPI Narrative ADRYAN SINGER, is a 54 M who presented to [facility] ED on 03/22/2025 with right forearm abscess with cellulitis. Medical history significant for type 2 diabetes not currently on any medications and history of IV drug use. Denies any recent illicit drug use. He developed poison mónica on his arms and legs about 2 weeks ago. Over the past 4 days now he has noticed an area of worsening right forearm swelling and pain and then today he began to notice purulent drainage, so he came in for further evaluation. In the ED, he was mildly hypotensive to the 100s over 60s and had borderline sinus tachycardia with heart rate in the 90s, was otherwise afebrile and stable on room air at rest. Labs notable for WBC count 19, sodium 132, chloride 97, glucose 331. I&D was done in the ED with moderate return of purulent and serosanguineous drainage. He was given dose of IV antibiotics and hospitalist was contacted for admission. I saw the patient at bedside in the ED. Patient was sitting by comfortably in bed, conversing normally, in no acute distress. Denied any acute pain in his right arm currently and noted that he tolerated the I&D without issue. Denies any fevers or chills. No other acute concerns currently. Will be admitted for further management. [facility] Home Medications ?Medication ?Instructions ?Recorded ?Last Taken ?Type metformin 500 mg tablet 500 mg PO BID #60 tabs 09/22/20 Unknown Rx Allergy/AdvReac Type Severity Reaction Status Date / Time Penicillins (PCN) Allergy Hives Verified 02/01/23 18:01 shellfish derived AdvReac Nausea/Vom/ Verified 02/01/23 18:01 Diarrhea Social History Smoking Status: Current every day smoker tobacco type: cigarettes ROS Constitutional Constitutional: Denies chills, fatigue, fever(s) or weakness Cardiovascular Cardiovascular: Denies chest pain Respiratory/Chest Respiratory/Chest: Denies shortness of breath at rest Gastrointestinal Gastrointestinal: Denies abdominal pain Musculoskeletal Musculoskeletal: Reports other Details: Right arm pain with swelling Vital Signs Vital Signs Vital Signs: 03/22/25 12:52 03/22/25 12:55 03/22/25 13:55 Temperature 97.7 F L 98.9 F 97.8 F Temperature Source Oral Oral Oral Pulse Rate 101 H 84 88 Respiratory Rate 20 H 16 18 Blood Pressure 125/80 H 103/69 112/76 Blood Pressure Mean 95 80 88 Pulse Ox 97 97 94 Oxygen Delivery Method Room Air Room Air Room Air 03/22/25 14:55 Temperature 97.8 F Temperature Source Temporal Pulse Rate 97 Respiratory Rate 19 H Blood Pressure 115/76 Blood Pressure Mean 89 Pulse Ox 97 Oxygen Delivery Method Room Air Weight Weight: 93.531 kg Body Mass Index (BMI) 27.9 Physical Exam Const alert, oriented x3, no apparent distress and average body habitus Constitutional Narrative: Middle-age male, sitting back comfortably in bed, conversing normally, in no acute distress. General Appearance: cooperative and comfortable HEENT normocephalic, head/scalp atraumatic, hearing grossly normal bilaterally, nasal mucous membranes and turbinates normal and moist oral mucous membranes Eyes PERRL, EOMs intact bilaterally and conjunctivae normal Neck full ROM Chest inspection of chest normal Resp normal respiratory effort, normal air movement, no use of accessory muscles and clear to auscultation bilaterally Cardio regular rate, regular rhythm, no murmurs and peripheral pulses 2+ throughout GI normal to inspection, nondistended, normoactive bowel sounds, soft to palpation, non-tender and non-distended Back/Spine normal ROM Extremity Extremity Narrative: Right forearm with bandage in place over I&D site and with erythema and swelling noted. Psych mental status grossly normal Results Lab / Micro Data 03/22/25 13:34 03/22/25 13:34 Labs: Laboratory Results - last 24 hr 03/22/25 13:34: WBC 19.3 H, RBC 4.76, Hgb 15.8, Hct 45.1, MCV 94.7 H, MCH 33.2 H, MCHC 35.0, RDW Std Deviation 42.9, RDW Coeff of Yair 12.3, Plt Count 282, MPV 9.0, Immature Gran % (Auto) 0.900, Neut % (Auto) 75.6 H, Lymph % (Auto) 12.3 L, [place] % (Auto) 9.4, Eos % (Auto) 1.4, Baso % (Auto) 0.4, Absolute Neuts (auto) 14.6 H, Absolute Lymphs (auto) 2.37, Nucleated RBC % 0, Sodium 132 L, Potassium 3.9, Chloride 97 L, Carbon Dioxide 20.8 L, Anion Gap 15, BUN 10, Creatinine 0.94, Estim Creat Clear Calc 105.46, Est GFR (MDRD) Non-Af 95, BUN/Creatinine Ratio 10.2, Glucose 331 H, Lactic Acid 1.9, Calcium 9.2, Total Bilirubin 0.53, AST 25, ALT 27, Alkaline Phosphatase 136 H, Total Protein 7.2, Albumin 3.5, Globulin 3.7, Albumin/Globulin Ratio 1.0, Urine Color Yellow, Urine Clarity Clear, Urine pH 6.0, Ur Specific [place] 1.015, Urine Protein 15 H, Urine Glucose (UA) 1000 H, Urine Ketones Negative, Urine Occult Blood 25 H, Urine Nitrite Negative, Urine Bilirubin Negative, Urine Urobilinogen Normal, Ur Leukocyte Esterase Negative, Urine RBC 0 SEEN, Urine WBC 0 SEEN, Ur Squamous Epith Cells 0 SEEN, Urine Bacteria 0 SEEN, Urine Mucus 0 SEEN Assessment & Plan Assessment/Plan (1) Abscess of right forearm: (2) Cellulitis: PLAN: Plan Patient is a 54-year-old male who presented to [facility] ED on 03/22/2025 with right forearm abscess with cellulitis. 1. Right forearm abscess with cellulitis ? Admit under inpatient status to [facility]. Wound care consulted. Reported recent history of poison mónica with bilateral upper and lower extremity rash for 2 weeks. Developed worsening right forearm pain and swelling over the past 4 days. Right forearm abscess with surrounding cellulitis noted in the ED. I&D performed with moderate purulent and serosanguineous drainage noted. Will treat with IV vancomycin and IV Levaquin (penicillin allergy) for now, follow-up cultures. Should be fine for discharge home on p.o. antibiotics in the next few days. 2. Type 2 diabetes mellitus ? Blood glucose 331 on admit. Was previously on metformin but has not taken now in some time. A1c ordered. Will treat with sliding scale insulin with meals while inpatient, adjust as needed. 3. History of polysubstance abuse ? History of opiate overdose in 2020 with cardiopulmonary arrest and successful resuscitation. UDS positive for methamphetamines and patient reported IV heroin use. Followed up with 180 after that. Denies any illicit drug use now for some time but will order urine drug screen for further evaluation. 4. Tobacco dependence ? Current smoker. Nicotine replacement available per patient request. Discussed cessation on discharge. DVT prophylaxis: Lovenox CODE STATUS: Full code, verified Expected disposition: Home, 2 to 3 days Total clinical time spent by myself addressing the patient's medical issues, reviewing all the data, and collaborating with patient's care team: 55 minutes. Charges/Coding Visit Charges Inpatient E&M: 28491 Init Hosp L2
--- OUTSIDE RECORDS SUMMARY | 2025-03-22 15:39 | XMS RPT_ITS | CCD ---
Author Organization [facility] Care Team Providers Care Cryptological Technician Name Role Phone Gael Cope Attending [facility] Care Physician, No Primary Primary Care Unava ilable Allergies Allergy Classification Reported Allergen(s) Allergy Type Date of Onset Reaction(s) Facility (1 source) Penicillins Allergy to substance 3 [facility] (2 sources) Shellfish; Translations: [shellfish derived] Propensity to adverse reactions 3 Nausea/Vom/Diar [facility] (1 source) Penicillins Drug allergy (disorder) 3 [facility] Repository Medications Current Medications Medication Drug Class(es) [...] QUANT 0.54 FEU/ug/m Invalid Interpretation Code 0.27-0.49 [facility] Comment on above: Result Comment: D-Di cheikh ELEVATED (>0.49): Additional studies and clinical assessments are indicated to conclude diagnosis of: Deep Vein Thrombosis (DVT) or Pulmonary Embolism (PE) CRITICAL VALUE VERIFIED. CALLED TO [employer] 02/01/23 2220 Kavitha Abernathy. RESULTS READ BACK BY SAME . Performed By: #### L 501.5425, L100.0100, L500.2500 #### [facility] [address] [facility] [place], [place], [address] 12 Lead EKGon 02-01-2023 12 Lead EKG [facility] Cardiovascular Services [address] [place] [address] 12 Lead EKG 02/01/23 1805 MR#: [id number] Acct: [id number] Name: ADRYAN SINGER Rep #: [id number] : 1970 52 From: Wally Pichardo MD [...] ECG Confirmed by MARINO ARAGON, KEENAN ([id number]), assistant film editor CEDRIC CARLIN ([id number]) on 02/06/2023 12:49:59 PM Referred By: DAVE/MARTINEZ Confirmed By:NATIVIDAD PICHARDO MD 02/06/23 1250 Date Wally Pichardo MD CC: Dr. 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 Signed Normal [facility] Absolute lymphocyte countOrd ered By: Gael Cope on 02-01-2023 Lymphocytes Auto (Unsp spec) [#/Vol] 2.97 10*3/uL 0.83-4.51 [facility] Basic Metabolic Profile (BMP )on 02-01-2023 BUN/CRE 11.3 RATIO Normal 10-20 [facility] Comment on above: Order Comment: 1 Y Performed By: #### L 501.5425, L100.0100, L500.2500 #### [facility] [address] [place], [address] CA,Total 9.0 mg/dL Normal 8.5-10.1 [facility] Comment on above: Order Comment: 1 Y Performed By: #### L 501.5425, L100.0100, L500.2500 #### [facility] [address] [place], [address] Chloride [Moles/Vol] 109 mmol/L High 98-107 [facility] Comment on above: Order Comment: 1 Y Performed By: #### L 501.5425, L100.0100, L500.2500 #### [facility] [address] [place], [address] CO2 [Moles/Vol] 25.0 mmol/L Normal 21.0-32.0 [facility] Comment on above: Order Comment: 1 Y Performed By: #### L 501.5425, L100.0100, L500.2500 #### [facility] [address] [place], [address] Creatinine [Mass/Vol] 0.88 mg/dL Normal 0.70-1.30 [facility] Comment on above: Order Comment: 1 Y Result Comment: The validity of the calculated GFR GFRAA in patients over 70 years has not been determined. Clinical correlation is essential. Performed By: #### L 501.5425, L100.0100, L500.2500 #### [facility] [address] [place], [address] ECRCL 106.55 ml/min Normal [facility] Comment on above: Order Comment: 1 Y Performed By: #### L 501.5425, L100.0100, L500.2500 #### [facility] [address] [place], [address] EST GFR - AA 116 mL/min Normal >60 [facility] Comment on above: Order Comment: 1 Y Result Comment: Afri can Micronesian GFR Calc Performed By: #### L 501.5425, L100.0100, L500.2500 #### [facility] [address] [place], [address] GAP 5 Normal 5-15 [facility] Comment on above: Order Comment: 1 Y Performed By: #### L 501.5425, L100.0100, L500.2500 #### [facility] [address] [place], [address] GFR/1.73 sq M.predicted among non-blacks MDRD (S/P/Bld) [Vol rate/Area] 96 mL/min/{1.73_m2} Normal >60 [facility] Comment on above: Order Comment: 1 Y Result Comment: Non- GFR Calc Performed By: #### L 501.5425, L100.0100, L500.2500 #### [facility] [address] [place], [address] Glucose [Mass/Vol] 179 mg/dL High 74-106 [facility] Comment on above: Order Comment: 1 Y Result Comment: Fast ing Glucose result greater than or equal to 126 mg/dL suggests DIABETES MELLITUS per A.D.A. criteria. Performed By: #### L 501.5425, L100.0100, L500.2500 #### [facility] [address] [place], [address] Potassium [Moles/Vol] 3.6 mmol/L Normal 3.5-5.1 [facility] Comment on above: Order Comment: 1 Y Performed By: #### L 501.5425, L100.0100, L500.2500 #### [facility] [address] [place], [address] Sodium [Moles/Vol] 139 mmol/L Normal 136-145 [facility] Comment on above: Order Comment: 1 Y Performed By: #### L 501.5425, L100.0100, L500.2500 #### [facility] [address] [place], [address] Urea nitrogen [Mass/Vol] 10 mg/dL Normal 7-18 [facility] Comment on above: Order Comment: 1 Y Performed By: #### L 501.5425, L100.0100, L500.2500 #### [facility] [address] [place], [address] Basophil percentageOrdered B y: Gael Cope on 02-01-2023 Basophils/100 WBC (Bld) 0.3 % 0-1 [facility] Bilirubin [Mass/Vol] 0.40 mg/dL 0.20-1.00 [facility] Comment on above: For patients on eltr ombopag therapy, use of Dimension [place] TBIL is not recommended. Chloride [Moles/Vol] 109 mmol/L 98-107 [facility] Eosinophils/100 WBC (Bld) 0.8 % 0-5 [facility] Glucose [Mass/Vol] 179 mg/dL 74-106 [facility] Comment on above: Fasting Glucose resu lt greater than or equal to 126 mg/dL suggests DIABETES MELLITUS per A.D.A. criteria. Neutrophils (Bld) [#/Vol] 15.9 10*3/uL 2.0-7.7 [facility] Neutrophils/100 WBC (Bld) 77.7 % 47-70 [facility] Potassium [Moles/Vol] 3.6 mmol/L 3.5-5.1 [facility] Protein [Mass/Vol] 6.9 g/dL 6.4-8.2 [facility] Sodium [Moles/Vol] 139 mmol/L 136-145 [facility] WBC (Bld) [#/Vol] 20.5 10*3/uL 4.4-11.0 [facility] [place] Blood erythrocytes count (nu mber/volume)Ordered By: Gael Cope on 02-01-2023 RBC (Bld) [#/Vol] 5.41 10*6/uL 4.6-6.2 [facility] [place] Blood hemoglobin measurement (mass/volume)Ordered By: Gael Cope on 02-01-2023 Hemoglobin (Bld) [Mass/Vol] 17.6 g/dL 13.0-16.5 [facility] Blood lymphocytes/100 leukoc ytesOrdered By: Gael Cope on 02-01-2023 Lymphocytes/100 WBC (Bld) 14.5 % 19-41 [facility] Blood monocytes/100 leukocyt esOrdered By: Gael Cope on 02-01-2023 Monocytes/100 WBC (Bld) 6.3 % 0-10 [facility] Blood platelet mean volumeOr dered By: Gael Cope on 02-01-2023 Platelet mean volume (Bld) [Entitic vol] 8.8 fL 6.2-12.0 [facility] CBC W/Diff, Automatedon Absolute Lymph 2.97 X10 3/uL Normal 0.83-4.51 [facility] Comment on above: Performed By: #### L 501.5425, L100.0100, L500.2500 #### [facility] [address] [place], [address] Absolute Neut 15.9 X10 3/uL High 2.0-7.7 [facility] Comment on above: Performed By: #### L 501.5425, L100.0100, L500.2500 #### [facility] [address] [place], [address] Basophils/100 WBC (Bld) 0.3 % Normal 0-1 [facility] Comment on above: Performed By: #### L 501.5425, L100.0100, L500.2500 #### [facility] [address] [place], [address] Eosinophils/100 WBC (Bld) 0.8 % Normal 0-5 [facility] Comment on above: Performed By: #### L 501.5425, L100.0100, L500.2500 #### [facility] [address] [place], [address] Erythrocyte distribution width (RBC) [Ratio] 13.0 % Normal 11.6-14.6 [facility] Comment on above: Performed By: #### L 501.5425, L100.0100, L500.2500 #### [facility] [address] [place], [address] Hematocrit (Bld) [Volume fraction] 52.1 % Normal 40-54 [facility] Comment on above: Performed By: #### L 501.5425, L100.0100, L500.2500 #### [facility] [address] [place], [address] Hemoglobin (Bld) [Mass/Vol] 17.6 g/dL High 13.0-16.5 [facility] Comment on above: Performed By: #### L 501.5425, L100.0100, L500.2500 #### [facility] [address] [place], [address] IG% 0.400 Normal 0.0-0.9 [facility] Comment on above: Result Comment: IG% - Immature Granulocytes (promyelocytes, myelocytes and metamyelocytes) > 1% indicates that a LEFT SHIFT is Present. Performed By: #### L 501.5425, L100.0100, L500.2500 #### [facility] [address] [place], [address] Lymphocytes/100 WBC (Bld) 14.5 % Low 19-41 [facility] Comment on above: Performed By: #### L 501.5425, L100.0100, L500.2500 #### [facility] [address] [place], [address] MCH (RBC) [Entitic mass] 32.5 pg High 27.0-32.0 [facility] Comment on above: Performed By: #### L 501.5425, L100.0100, L500.2500 #### [facility] [address] [place], [address] MCHC (RBC) [Mass/Vol] 33.8 g/dL Normal 32-36 [facility] Comment on above: Performed By: #### L 501.5425, L100.0100, L500.2500 #### [facility] [address] [place], [address] MCV (RBC) [Entitic vol] 96.3 fL High 80-94 [facility] Comment on above: Performed By: #### L 501.5425, L100.0100, L500.2500 #### [facility] [address] [place], [address] Monocytes/100 WBC (Bld) 6.3 % Normal 0-10 [facility] Comment on above: Performed By: #### L 501.5425, L100.0100, L500.2500 #### [facility] [address] [place], [address] Neutrophils/100 WBC (Bld) 77.7 % High 47-70 [facility] Comment on above: Performed By: #### L 501.5425, L100.0100, L500.2500 #### [facility] [address] [place], [address] Nucleated RBC (Bld) [#/Vol] 0 10*3/uL Normal 0-5 [facility] Comment on above: Performed By: #### L 501.5425, L100.0100, L500.2500 #### [facility] [address] [place], [address] Platelet mean volume (Bld) [Entitic vol] 8.8 fL Normal 6.2-12.0 [facility] Comment on above: Performed By: #### L 501.5425, L100.0100, L500.2500 #### [facility] [address] [place], [address] Platelets (Bld) [#/Vol] 311 10*3/uL Normal 150-450 [facility] Comment on above: Performed By: #### L 501.5425, L100.0100, L500.2500 #### [facility] [address] [place], [address] RBC (Bld) [#/Vol] 5.41 10*6/uL Normal 4.6-6.2 [facility] [place] Comment on above: Performed By: #### L 501.5425, L100.0100, L500.2500 #### [facility] [address] [place], [address] RDW SD 45.4 fl High 35.1-43.9 [facility] Comment on above: Performed By: #### L 501.5425, L100.0100, L500.2500 #### [facility] [address] [place], [address] WBC (Bld) [#/Vol] 20.5 10*3/uL High 4.4-11.0 [facility] Comment on above: Performed By: #### L 501.5425, L100.0100, L500.2500 #### [facility] [address] [place], [address] CTA Chest W/WO Contraston CTA Chest W/WO Contrast [facility] Imaging Services [address] [place] [address] CTA Chest W/WO Contrast MR#: [id number] Acct: [id number] Name: ADRYAN SINGER Rep #: [id number] : 1970 M 52 From: Yeyo Zhou MD PCP: Care Physician,No Primary Status: REG ER Study: CTA Chest W/WO Contrast Date of Exam: 02/01/23 Exam# [id number] Ordering Dr: Gael Cope MD STUDY: CTA [...] 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 Photocopying Equipment Mechanic: Signed Normal [facility] CTA Chst, Abd, Pel W and/or WOon 02-01-2023 CTA Chst, Abd, Pel W and/or WO [facility] Imaging Services [address] [place] [address] CTA Chst, Abd, Pel W and/or WO MR#: [id number] Acct: [id number] Name: ADRYAN SINGER Rep #: [id number] : 1970 M 52 From: Yeyo Zhou MD PCP: Care Physician,No Primary Status: REG ER Study: CTA Chst, Abd, Pel W and/or WO Date of Exam: 0 02/01/23 Exam# [id number] Ordering Dr: Gael Cope MD ADDENDUM by [...] esophageal thick (more content not included)... Normal [facility] Chest 1 View (Portable)on Chest 1 View (Portable) [facility] Imaging Services [address] [place] [address] Chest 1 View (Portable) MR#: [id number] Acct: [id number] Name: ADRYAN SINGER Rep #: [id number] : 1970 M 52 From: Yeyo Zhou MD PCP: Care Physician,No Primary Status: REG ER Study: Chest 1 View (Portable) Date of Exam: 02/01/23 Exam# [id number] Ordering Dr: Gael Cope MD INDICATION: Chest [...] 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 Photocopying Equipment Mechanic: Signed Normal [facility] Determination of erythrocyte mean corpuscular volume (MCV)Ordered By: Gael Cope on 02-01-2023 MCV (RBC) [Entitic vol] 96.3 fL 80-94 [facility] Direct bilirubinOrdered By: Gael Cope on 02-01-2023 Bilirubin.direct [Mass/Vol] 0.09 mg/dL 0.00-0.30 [facility] Emergency Department Summary on 02-01-2023 Emergency Department Summary [facility] Medical Records Department [address] [place] [address] Emergency Department Summary 02/01/23 MR#: [id number] Acct: [id number] Name: ADRYAN SINGER Rep #: [id number] : 1970 52 From: Gael Cope MD [...] cords. Radial pulses are equal symmetrical. Normal labor/excavator strength and range of motion. Neurologically is [...] NAD; Ne (more content not included)... Normal [facility] Hematocrit Auto (Bld) [Volum e fraction]Ordered By: Gael Cope on 02-01-2023 Hematocrit (Bld) [Volume fraction] 52.1 % 40-54 [facility] L501.4020on 02-01-2023 TROPONIN-I HS 5 pg/mL Normal 3.0-78.0 [facility] Comment on above: Result Comment: Plea se Note: New Test Units and Gender Specific Reference Ranges. For more information see Policy Stat Procedure [place] High Sensitivity Troponin (TNIH) and attachments. Performed By: #### L 501.5425, L100.0100, L500.2500 #### [facility] [address] [place], [place], [address] L501.5425on 02-01-2023 TROPONIN-I HS 5 pg/mL Normal 3.0-78.0 [facility] Comment on above: Order Comment: 1 Y Result Comment: Plea se Note: New Test Units and Gender Specific Reference Ranges. For more information see Policy Stat Procedure [place] High Sensitivity Troponin (TNIH) and attachments. Performed By: #### L 501.5425, L100.0100, L500.2500 #### [facility] [address] [place], [place], [address] Laboratory - Chemistry and C hemistry - challengeOrdered By: Gael Cope on 02-01-2023 ALP [Catalytic activity/Vol] 124 U/L 45-117 [facility] ALT [Catalytic activity/Vol] 23 U/L 16-61 [facility] CO2 [Moles/Vol] 25.0 mmol/L 21.0-32.0 [facility] Globulin (S) [Mass/Vol] 3.8 g/dL 2.2-4.2 [facility] Lipase [Catalytic activity/Vol] 23 U/L - [facility] Comment on above: Please note:LIPASE r evised reference range effective 22. New Lipase methodology. Expected to produce lower values than the previous assay method. NEW Reference Range: 13 - 75 U/L Urea nitrogen/Creatinine [Mass ratio] 11.3 mg/mg 10-20 [facility] - Hematology and Cell countsOrdered By: Gael Cope on 02-01-2023 Erythrocyte distribution width (RBC) [Entitic vol] 45.4 fL 35.1-43.9 [facility] Erythrocyte distribution width (RBC) [Ratio] 13.0 % 11.6-14.6 [facility] Immature granulocytes/100 WBC (Bld) 0.400 % 0.0-0.9 [facility] Comment on above: IG% - Immature Granu locytes (promyelocytes, myelocytes and metamyelocytes) > 1% indicates that a LEFT SHIFT is Present. MCH (RBC) [Entitic mass] 32.5 pg 27.0-32.0 [facility] Nucleated RBC/100 WBC (Bld) [Ratio] 0 % 0-5 [facility] Lipaseon 02-01-2023 Lipase [Catalytic activity/Vol] 23 U/L Normal - [facility] Comment on above: Result Comment: Edd acosta note: LIPASE revised reference range effective 22. New Lipase methodology. Expected to produce lower values than the previous assay method. NEW Reference Range: 13 - 75 U/L Performed By: #### L 501.2450 #### [facility] [address] [place], [address] Liver Profileon 02-01-2023 Albumin [Mass/Vol] 3.1 g/dL Low 3.2-5.0 [facility] Comment on above: Performed By: #### L 501.5425, L100.0100, L500.2500 #### [facility] [address] [place], [address] ALK P 124 U/L High 45-117 [facility] Comment on above: Performed By: #### L 501.5425, L100.0100, L500.2500 #### [facility] [address] [place], [address] ALT [Catalytic activity/Vol] 23 U/L Normal 16-61 [facility] Comment on above: Performed By: #### L 501.5425, L100.0100, L500.2500 #### [facility] [address] [place], [address] AST [Catalytic activity/Vol] 12 U/L Low 15-37 [facility] Comment on above: Performed By: #### L 501.5425, L100.0100, L500.2500 #### [facility] [address] [place], [address] Bilirubin [Mass/Vol] 0.40 mg/dL Normal 0.20-1.00 [facility] Comment on above: Result Comment: For patients on eltrombopag therapy, use of Dimension [place] TBIL is not recommended. Performed By: #### L 501.5425, L100.0100, L500.2500 #### [facility] [address] [place], [address] Bilirubin.direct [Mass/Vol] 0.09 mg/dL Normal 0.00-0.30 [facility] Comment on above: Performed By: #### L 501.5425, L100.0100, L500.2500 #### [facility] [address] [place], [address] Globulin (S) [Mass/Vol] 3.8 g/dL Normal 2.2-4.2 [facility] Comment on above: Performed By: #### L 501.5425, L100.0100, L500.2500 #### [facility] [address] [place], [address] T PROT 6.9 g/dL Normal 6.4-8.2 [facility] Comment on above: Performed By: #### L 501.5490, L100.0100, L500.0293 #### [facility] [address] [place], [address] MCHC Auto (RBC) [Mass/Vol]Or dered By: Gael Cope on 02-01-2023 MCHC (RBC) [Mass/Vol] 33.8 g/dL 32-36 [facility] No Panel InformationOrdered By: Gael Cope on 02-01-2023 Troponin I High Sensitivity 5 pg/mL 3.0-78.0 [facility] Comment on above: Please Note: New Juanis t Units and Gender Specific Reference Ranges. For more information see Policy Stat Procedure [place] High Sensitivity Troponin (TNIH) and attachments. D-Dimer Quantitative (PE/DVT) 0.54 FEU/ug/m 0.27-0.49 [facility] Comment on above: D-Dimer ELEVATED (>0 .49): Additional studies and clinicalassessments are indicated to conclude diagnosis of:Deep Vein Thrombosis (DVT) or Pulmonary Embolism (PE)CRITICAL VALUE VERIFIED. CALLED TO [id number] Kavitha Abernathy.RESULTS READ BACK BY SAME . Estimated Creatinine Clearance Calc 106.55 ml/min [facility] Estimated GFR (MDRD) Amer 116 mL/min >60 [facility] Comment on above: GFR Calc Estimated GFR (MDRD) Non-Af Amer 96 mL/min >60 [facility] Comment on above: Non- GFR Calc Platelets bldOrdered By: Bhavesh Cope on 02-01-2023 Platelets (Bld) [#/Vol] 311 10*3/uL 150-450 [facility] Serum or plasma albumin joan urement (mass/volume)Ordered By: Gael Cope on 02-01-2023 Albumin [Mass/Vol] 3.1 g/dL 3.2-5.0 [facility] Serum or plasma calcium joan urement (mass/volume)Ordered By: Gael Cope on 02-01-2023 Calcium [Mass/Vol] 9.0 mg/dL 8.5-10.1 [facility] Serum or plasma creatinine m easurement (mass/volume)Ordered By: Gael Cope on 02-01-2023 Creatinine [Mass/Vol] 0.88 mg/dL 0.70-1.30 [facility] Comment on above: The validity of the calculated GFR & GFRAA in patients over 70 years has not been determined. Clinical correlation is essential. Serum or plasma urea nitroge n measurement (mass/volume)Ordered By: Gael Cope on 02-01-2023 Urea nitrogen [Mass/Vol] 10 mg/dL 7-18 [facility] Thin prep Papanicolaou smear with manual screeningOrdered By: Gael Cope on 02-01-2023 Thin prep Papanicolaou smear with manual screening 12 U/L 15-37 [facility] Thin prep Papanicolaou smear with manual screening 5 5-15 [facility] Venous Duplex Imag/Ramsey Extre mon 02-01-2023 Venous Duplex Imag/Ramsey Extrem [facility] Imaging Services [address] [place] [address] Venous Duplex Imag/Ramsey Extrem MR#: [id number] Acct: [id number] Name: ADRYAN SINGER Rep #: [id number] : 1970 M 52 From: Yeyo Zhou MD PCP: Care Physician,No Primary Status: REG ER Study: Venous Duplex Imag/Ramsey Extrem Date of Exam: Exam# [id number] Ordering Dr: Gael Cope MD INDICATION: CHEST [...] 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 Photocopying Equipment Mechanic: Signed Normal [facility] Vital Signs Date Time Vital Sign Value Performing Clinician Faci lity 02-01-2023 21:54-0400 Diastolic blood pressure 95 mm[Hg] [facility] 02-01-2023 21:54-0400 Heart rate 80 /min [facility] 02-01-2023 21:54-0400 Respiratory rate 16 /min [facility] 02-01-2023 21:54-0400 SaO2% (BldA) [Mass fraction] 98 % [facility] 02-01-2023 21:54-0400 Systolic blood pressure 136 mm[Hg] [facility] 02-01-2023 18:00-0400 Body height 182.88 cm [facility] 02-01-2023 18:00-0400 Body mass index (BMI) [Ratio] 26.9 kg/m2 [facility] 02-01-2023 18:00-0400 Body temperature 97.3 [degF] [facility] 02-01-2023 18:00-0400 Body weight 90.26 kg [facility] Encounters Encounter Date Encounter Type Care Provider Facility Start: 02-01-2023 End: 02-02-2023 Emergency department patient visit Gael Cope Facility:[facility] Start: 02-01-2023 End: 02-01-2023 Emergency department patient visit [facility] Work Phone: Procedures Date Procedure Procedure Detail Performing Clinician Start: 02-01-2023 CT angiography of ch est with contrast Start: 02-01-2023 Plain chest X-ray Start: 02-01-2023 CT of thorax, abdome n and pelvis with contrast Plan of Treatment Date Care Activity Detail Author Start: 02-01-2023 [facility] Patient Education ED Chest Pain, Uncertain Cause ED Epigastric Pain Uncertain Cause [facility] Work Phone: Patient referral [facility] Work Phone: Payers Date Payer Category Payer Medicaid [id number] b 2023 Self-pay [id number] c 2005 Medicare MEDICARE PART A B [id number] Medicaid MEDICAID [id number] b Unknown [employer] [facility] [facility] [facility] [id number] 3 Unknown [id number] Social History Date Type Detail Facility Start: 02-01-2023 Tobacco smoking status NHIS Unknown if ever smoked [facility] Start: 09-20-2020 None [facility] Start: 09-20-2020 Heroin [facility] Start: 05-21-2020 Spouse/ Signif icant Other [facility] Start: 12-04-2020 Cigarettes [facility] Start: 1970 Sex Assigned At Male [facility] Mental Status Date Assessment Result Facility 02-01-2023 Cognitive function Awake;Alert;Appropriat e [facility] Work Phone: Discharge summary 02-01-2023 Note Date & Type Note Facility 02-01-2023 Discharge summary Note Date/Time February 01, 2023 6:38pm [facility] Medical Records Department [address] [place] [address] Emergency Department Summary 02/01/23 MR#: [id number] Acct: [id number] Name: LIZANDRO SINGERJuliann Maria Rep #:[id number] : 1970 52 From: Gael Cope MD [...] cords. Radial pulses are equal symmetrical. Normal labor/excavator strength and range of motion. Neurologically is [...] 77.7 H Lymph % (Auto) 14.5 L [place] % (Auto) 6.3 Eos % (Auto) 0.8 [...] 19:56 EDT Reading Location ID and State: [facility] / [place] Tel , Service support , ADDENDUM: 02/01/232022 [...] rhythm rate 88 no acute signs of [place] or ischemia. Prior EKG tracings: not available [...] Referrals: Michael Sharma MD [Med Staff - Pharmaceutical Operator] - 1-2 Weeks Care Physician,No Primary [Primary [...] your Primary Care Provider. Call [facility] ([phone]) or report to the closest Emergency Room. Call 911 if necessary. 02/01/232216 <Electronically signed by Gael Cope MD> Cosigner Signature (if applicable): CC: No Primary Care Physician ~ Signed [facility] Work Phone: Evaluation note Note Date & Type Note Facility Evaluation note No assessment information availa ble [facility] Work Phone: Hospital Discharge instructions Note Date [...] primary care physician. Return if feeling worse. [facility] Work Phone: Chief Complaint and Reason for [...] February 01, 2023 6 :04pm Power of Channel Process Plant Operator No February 01, 2023 6:04pm Summary Purpose [...] section and content) DATE CREATED AUTHOR 02/11/2023 [facility] FOR RECORDS PERTAINING TO PATIENTS WHO ARE [...] BE BASED ON THE PRIMARY CLINICAL RECORDS. [employer] [facility]. provides no warranty or guarantee of the accuracy or completeness of information in this document.
[2025-03-22] MEDS: Vancomycin HCl 2,000 MG in 0.9% Normal Saline (500mL Bag) 500 ML 250 MG IV (16:33)
--- NOTE | 2025-03-22 17:02 | PHA.PHARE_ITS ---
Consult Antibiotic Management Pharmacy has been consulted to manage selected antibiotic: Vancomycin Type of Intervention Type of Consult: New start Suspected Infection Suspected Infection: Skin/Soft tissue Prior Doses of Antibiotics Prior Doses of Antibiotics Received/Current Regimen: vanc 2000mg IV x1 ordered in E.R. and started at 16:33 Labs Labs: Sodium 132 mmol/L (133-145) L 03/22/25 13:34 Potassium 3.9 mmol/L (3.3-5.1) 03/22/25 13:34 Chloride 97 mmol/L (98-108) L 03/22/25 13:34 Carbon Dioxide 20.8 mmol/L (21.0-32.0) L 03/22/25 13:34 Anion Gap 15 (5-15) 03/22/25 13:34 BUN 10 mg/dL (4-19) 03/22/25 13:34 Creatinine 0.94 mg/dL (0.70-1.20) 03/22/25 13:34 Est GFR (MDRD) Non-Af 95 (>60) 03/22/25 13:34 BUN/Creatinine Ratio 10.2 RATIO (10-20) 03/22/25 13:34 Glucose 331 mg/dL (70-99) H 03/22/25 13:34 Dosing Weight Weight used for dosin.5 kg Estimated Creatinine Clearance Estimated Creatinine Clearance: 105ml/min Goal Trough Goal Trough: 15-20 mcg/mL Pharmacy Plan for Drug Dosing Pharmacy Plan for Drug Dosing: Starting 8 hours after the E.R. dose, continue with 1000mg IV q8h per [facility] dosing protocol. Check a trough before the 4th overall dose. Pharmacy Service will continue to monitor and adjust dosing as required. Follow-Up Labs Follow-Up Labs: Trough: Vancomycin Date/Time Labs Ordered Labs to be done on [date and time ordered]: 03/23/25 16:30
[2025-03-22] MEDS: Nicotine (PBKC) 21 MG Patch TD (17:57)
[2025-03-22 19:19] LABS: Barbiturate Urine NEGATIVE (< 200 ng/mL); Benzodiazepine Urine NEGATIVE (< 200 ng/mL); PCP Urine NEGATIVE (< 25 ng/mL); THC Urine PRESUMPTIVE POSITIVE (< 50 ng/mL)
[2025-03-23] MEDS: Vancomycin HCl 1,000 MG in 0.9% Normal Saline (250mL Bag) 250 ML 250 MG IV (01:35)
[2025-03-23 01:41] VITALS: BP 113/74; PULSE 87; RESP 17; TEMP 36.7; O2SAT 96
--- NOTE | 2025-03-23 03:55 | PCM.HOSP.N ---
Hospitalist Note 1/2 blood culture with GPC in clusters, currently on vanc, levaquin.
[2025-03-23 06:02] LABS: Hematocrit 48.0 % (40-54); Hemoglobin 16.1 g/dL (13.0-16.5); Mean Corp Hgb Conc 33.5 g/dL (32-36); Mean Corpuscular Volume 96.6 fL (80-94); Mean Platelet Vol. 9.0 fl (6.2-12.0); Platelet Count 304 K/mm3 (150-450); RBC Distribution Width CV 12.2 % (11.6-14.6); RBC Distribution Width SD 43.7 fl (35.1-43.9); Red Blood Count 4.97 M/mm3 (4.6-6.2); White Blood Count 16.2 K/mm3 (4.4-11.0)
[2025-03-23 06:44] LABS: Anion Gap 13 (5-15); BUN 8 mg/dL (4-19); BUN/Creat Ratio 9.5 RATIO (10-20); Calcium,Total 9.1 mg/dL (7.6-11.0); Carbon Dioxide 20.1 mmol/L (21.0-32.0); Chloride 101 mmol/L (98-108); Estimated Creatinine Clearance 113.10 ml/min (50-250); Glucose 230 mg/dL (70-99); Potassium 4.7 mmol/L (3.3-5.1)
[2025-03-23 07:21] VITALS: O2SAT 96
--- NOTE | 2025-03-23 09:23 | PN.HOSP_ITS ---
Reason for Visit Chief Complaint: Right forearm abscess with cellulitis Subjective Subjective Patient was seen and examined today, his right forearm is wrapped with surgical dressing and the area above this dressing is edematous and reddened. Patient question whether he could be discharged home today, he is worried about his dog at home and has no one to feed him, he is also worried because he does not have insurance. I told him that most likely he would need to stay, reviewing his labs showed a positive blood culture for gram-positive cocci in clusters. Patient is currently on Levaquin and vancomycin, I have elected to stop his Levaquin and place him on Ancef-he has hives listed as an allergy from penicillin, he will be monitored after the Ancef administration to make sure he does not develop any rash or hives. Patient is on sliding scale insulin for his diabetes Objective Data Objective Data Vital Signs: Vital Signs Temp Pulse Resp BP Pulse Ox O2 Del Method 98.1 F 87 17 113/74 96 Room Air 03/23/25 01:41 03/23/25 01:41 03/23/25 01:41 03/23/25 01:41 03/23/25 07:21 03/23/25 07:21 Oxygen Delivery Method Room Air Weight: 92.533 kg Body Mass Index (BMI) 27.6 Intake & Output: Intake and Output for Last 24 Hours 03/21/25 03/22/25 03/23/25 23:59 23:59 23:59 Intake Total 1040 / 1340 570 / 570 Balance 1040 / 1340 570 / 570 Lab / Micro Data 03/23/25 05:42 03/23/25 05:42 Labs: Laboratory Results - last 24 hr 03/22/25 13:34: WBC 19.3 H, RBC 4.76, Hgb 15.8, Hct 45.1, MCV 94.7 H, MCH 33.2 H , MCHC 35.0, RDW Std Deviation 42.9, RDW Coeff of Yair 12.3, Plt Count 282, MPV 9.0, Immature Gran % (Auto) 0.900, Neut % (Auto) 75.6 H, Lymph % (Auto) 12.3 L, [place] % (Auto) 9.4, Eos % (Auto) 1.4, Baso % (Auto) 0.4, Absolute Neuts (auto) 14.6 H, Absolute Lymphs (auto) 2.37, Nucleated RBC % 0, Sodium 132 L, Potassium 3.9, Chloride 97 L, Carbon Dioxide 20.8 L, Anion Gap 15, BUN 10, Creatinine 0.94, Estim Creat Clear Calc 105.46, Est GFR (MDRD) Non-Af 95, BUN/Creatinine Ratio 10.2, Glucose 331 H, Hemoglobin A1c 9.3 H, Lactic Acid 1.9, Calcium 9.2, Total Bilirubin 0.53, AST 25, ALT 27, Alkaline Phosphatase 136 H, Total Protein 7.2, Albumin 3.5, Globulin 3.7, Albumin/Globulin Ratio 1.0, Urine Color Yellow, Urine Clarity Clear, Urine pH 6.0, Ur Specific [place] 1.015, Urine Protein 15 H , Urine Glucose (UA) 1000 H, Urine Ketones Negative, Urine Occult Blood 25 H, Urine Nitrite Negative, Urine Bilirubin Negative, Urine Urobilinogen Normal, Ur Leukocyte Esterase Negative, Urine RBC 0 SEEN, Urine WBC 0 SEEN, Ur Squamous Epith Cells 0 SEEN, Urine Bacteria 0 SEEN, Urine Mucus 0 SEEN 03/22/25 13:35: Urine Opiates Screen NEGATIVE, U Buprenorphine Qual NEGATIVE, Ur Oxycodone Screen NEGATIVE, Urine Methadone Screen NEGATIVE, Urine Fentanyl Screen NEGATIVE, Ur Barbiturates Screen NEGATIVE, Ur Phencyclidine Scrn NEGATIVE, Ur Amphetamines Screen PRESUMPTIVE POSITIVE, U Benzodiazepines Scrn NEGATIVE, Urine Cocaine Screen NEGATIVE, U Cannabinoids Screen PRESUMPTIVE POSITIVE 03/22/25 16:35: POC Glucose 348 H 03/22/25 21:34: POC Glucose 249 H 03/23/25 05:42: WBC 16.2 H, RBC 4.97, Hgb 16.1, Hct 48.0, MCV 96.6 H, MCH 32.4 H , MCHC 33.5, RDW Std Deviation 43.7, RDW Coeff of Yair 12.2, Plt Count 304, MPV 9.0, Sodium 134, Potassium 4.7, Chloride 101, Carbon Dioxide 20.1 L, Anion Gap 13, BUN 8, Creatinine 0.81, Estim Creat Clear Calc 113.10, Est GFR (MDRD) Non-Af 104, BUN/Creatinine Ratio 9.5 L, Glucose 230 H, Calcium 9.1 03/23/25 06:29: POC Glucose 251 H Micro: Microbiology 03/22/25 14:50 Blood Culture (Wb) - Anticubital Left Blood Culture - Preliminary Physical Exam Const alert, oriented x3, no apparent distress and healthy appearing General Appearance: cooperative, well kempt and well developed Orientation / Consciousness: awake, oriented to person, oriented to place and oriented to time HEENT normocephalic and moist oral mucous membranes Eyes PERRL, EOMs intact bilaterally and conjunctivae normal Neck supple, no JVD, thyroid normal and no carotid bruits General: trachea midline Resp normal respiratory effort, no retractions, no use of accessory muscles and clear to auscultation bilaterally Auscultation: Negative for rales, rhonchi or wheezes Cardio regular rate, regular rhythm, S1 normal heart sound, S2 normal heart sound, no murmurs, no rub and no gallops GI normal to inspection, nondistended, normoactive bowel sounds, soft to palpation, non-tender and non-distended Extremity Extremity Narrative: There is generalized edema of the right forearm, there is also redness of the right forearm, his bandage was not removed for examination of his right forearm wound/abcess Neuro oriented x3, CN's II-XII intact bilaterally, moves all extremities, no focal motor deficits and no sensory deficits noted Sensorium / Orientation: awake and alert Speech: speech normal Psych affect normal Assessment & Plan Assessment/Plan (1) Abscess of right forearm: PLAN: Plan 1. Abscess of the right forearm with evidence of bacteremia-patient will remain on vancomycin, I have elected to place him on Ancef and stop his Levaquin. #2 type 2 diabetes-blood sugars were monitored, sliding scale insulin will be used per fingerstick blood sugars Total clinical time spent by myself addressing the patient's medical issues, reviewing all of his data, and collaborating with patient's care team: 35-minute Charges/Coding Visit Charges Inpatient E&M: 17047 Subs Hosp L2
--- NOTE | 2025-03-23 09:27 | NURSING ---
relayed to patient at Dr. Woods's request that he would like the patient to stay another day based on labs and blood cultures. Dr. Woods did verbalized he was aware pt's concern of no insurance and concern for feeding his dog but Dr. Woods reiterated he feels it is in patient's best interest to stay here for IV antibiotics. Pt verbalized he would like to leave with oral antibiotics. reiterated what Dr. Woods said and informed patient if he choose to leave would be AMA. Pt aware and denies all further needs. Primary RN updated.
--- NOTE | 2025-03-23 09:40 | DCINST_ITS ---
Discharge Instructions DC O2, CPAP, BIPAP needs Home O2 Discharge instructions: No Dressing / Incision Discharge Activity: Return to Normal Activity Weight Bearing Status: Full weight bearing Follow Up Care Test Results: Test results from this visit will be discussed in further detail at your follow- up appointment, if applicable. Discharge Plan Admission Admit Date/Time: 03/22/25 15:20 Primary Reason for Your Visit: Abscess right forearm Attending Provider: Prince Woods Primary Care Provider: Care Physician,No Primary Consulting Providers: Rashawn Izaguirre Instructions Additional Instructions / Restrictions: I recommend you see a family physician this week for reexamination of your arm wound, clean the wound with soap and water daily and apply a dressing, you will also need follow-up for your diabetes. If you have any rash or hives after starting your antibiotics, stop the cephalexin Return to the emergency room if you develop a temperature above 102 or your medical condition worsens Discharge Orders/Prescriptions Prescriptions: New doxycycline monohydrate 100 mg tablet 100 mg PO BID Qty: 30 0RF Rx Instructions: Start today glimepiride 4 mg tablet 4 mg PO DAILY Qty: 30 0RF Rx Instructions: Take 1 daily for diabetes metformin 500 mg tablet 500 mg PO BID Qty: 60 0RF Rx Instructions: 1 twice a day for diabetes cephalexin 500 mg tablet 500 mg PO TID Qty: 30 0RF Discontinued metformin 500 MG tablet 500 mg PO BID Qty: 60 1RF Referrals / Follow Up: Care Physician,No Primary [Primary Care Provider] - Disposition Disposition (needs filled in before D/C Order can be placed): Against Medical Advice
--- NOTE | 2025-03-23 09:48 | DS.PCM_ITS ---
Providers Date of Admission: 03/22/25 Date of Discharge: 03/23/25 Primary Care Physician: Clementina Primary Care Phys Consultations 03/22/25 19:13 Consult: Onc/Wound/compliance representative Routine Comment: Reason For Visit: RIGHT ARM ABSCESS WITH CELLULITIS Diagnosis Discharge Diagnosis (1) Abscess of right forearm: Status: Acute Code(s): L02.413 - Cutaneous abscess of right upper limb Plan 1. Abscess of the right forearm with evidence of bacteremia-patient will remain on vancomycin, I have elected to place him on Ancef and stop his Levaquin. #2 type 2 diabetes-blood sugars were monitored, sliding scale insulin will be used per fingerstick blood sugars #3 noncompliance with medical regimen-patient elected to check himself out AMA from the hospital on 03/23/2025, risks of this action was explained to him. Total clinical time spent by myself addressing the patient's medical issues, reviewing all of his data, and collaborating with patient's care team: 35-minute Medications at Discharge Home Medications cephalexin 500 mg tablet 500 mg PO TID #30 tabs 03/23/25 doxycycline monohydrate 100 mg tablet 100 mg PO BID #30 tabs 03/23/25 glimepiride 4 mg tablet 4 mg PO DAILY #30 tabs 03/23/25 metformin 500 mg tablet 500 mg PO BID #60 tabs 03/23/25 Hospital Course Operations None Procedures None Summary of Care Provided Minutes Spent on Discharge: 30 Hospital Course: This 54-year-old white male was seen in the emergency room at [facility] complaining of a wound and redness with swelling over his right forearm that started approximately 3 days ago. Workup in the emergency room included labs which showed an elevated white blood cell count, area on the right forearm appeared to be reddened and there was suspicion of abscess. There was noted to be severe cellulitis of the right forearm. Patient was admitted to [place] [address] and placed on IV vancomycin and Levaquin, the following day, patient told me he wanted to be discharged from the hospital, I explained to him that he had a positive blood culture and that he should stay, he was aware of this but elected to sign out AMA. For physical exam please see progress note dated 03/23/2025. Patient was discharged AGAINST MEDICAL ADVICE on 03/23/2025, prescriptions were transmitted to [facility] in [place] for antibiotics and diabetes medication. Weight / BMI Weight Weight: 92.533 kg Body Mass Index (BMI) 27.6 ABG / Lab / Microbiology Data 03/23/25 05:42 03/23/25 05:42 Laboratory: Laboratory Results - last 24 hr 03/22/25 13:34: WBC 19.3 H, RBC 4.76, Hgb 15.8, Hct 45.1, MCV 94.7 H, MCH 33.2 H , MCHC 35.0, RDW Std Deviation 42.9, RDW Coeff of Yair 12.3, Plt Count 282, MPV 9.0, Immature Gran % (Auto) 0.900, Neut % (Auto) 75.6 H, Lymph % (Auto) 12.3 L, [place] % (Auto) 9.4, Eos % (Auto) 1.4, Baso % (Auto) 0.4, Absolute Neuts (auto) 14.6 H, Absolute Lymphs (auto) 2.37, Nucleated RBC % 0, Sodium 132 L, Potassium 3.9, Chloride 97 L, Carbon Dioxide 20.8 L, Anion Gap 15, BUN 10, Creatinine 0.94, Estim Creat Clear Calc 105.46, Est GFR (MDRD) Non-Af 95, BUN/Creatinine Ratio 10.2, Glucose 331 H, Hemoglobin A1c 9.3 H, Lactic Acid 1.9, Calcium 9.2, Total Bilirubin 0.53, AST 25, ALT 27, Alkaline Phosphatase 136 H, Total Protein 7.2, Albumin 3.5, Globulin 3.7, Albumin/Globulin Ratio 1.0, Urine Color Yellow, Urine Clarity Clear, Urine pH 6.0, Ur Specific [place] 1.015, Urine Protein 15 H , Urine Glucose (UA) 1000 H, Urine Ketones Negative, Urine Occult Blood 25 H, Urine Nitrite Negative, Urine Bilirubin Negative, Urine Urobilinogen Normal, Ur Leukocyte Esterase Negative, Urine RBC 0 SEEN, Urine WBC 0 SEEN, Ur Squamous Epith Cells 0 SEEN, Urine Bacteria 0 SEEN, Urine Mucus 0 SEEN 03/22/25 13:35: Urine Opiates Screen NEGATIVE, U Buprenorphine Qual NEGATIVE, Ur Oxycodone Screen NEGATIVE, Urine Methadone Screen NEGATIVE, Urine Fentanyl Screen NEGATIVE, Ur Barbiturates Screen NEGATIVE, Ur Phencyclidine Scrn NEGATIVE, Ur Amphetamines Screen PRESUMPTIVE POSITIVE, U Benzodiazepines Scrn NEGATIVE, Urine Cocaine Screen NEGATIVE, U Cannabinoids Screen PRESUMPTIVE POSITIVE 03/22/25 16:35: POC Glucose 348 H 03/22/25 21:34: POC Glucose 249 H 03/23/25 05:42: WBC 16.2 H, RBC 4.97, Hgb 16.1, Hct 48.0, MCV 96.6 H, MCH 32.4 H , MCHC 33.5, RDW Std Deviation 43.7, RDW Coeff of Yair 12.2, Plt Count 304, MPV 9.0, Sodium 134, Potassium 4.7, Chloride 101, Carbon Dioxide 20.1 L, Anion Gap 13, BUN 8, Creatinine 0.81, Estim Creat Clear Calc 113.10, Est GFR (MDRD) Non-Af 104, BUN/Creatinine Ratio 9.5 L, Glucose 230 H, Calcium 9.1 03/23/25 06:29: POC Glucose 251 H Microbiology: Microbiology 03/22/25 14:50 Blood Culture (Wb) - Anticubital Left Blood Culture - Preliminary D/C Instructions Weight Bearing Status: Full weight bearing DC O2, CPAP, BIPAP Needs Home O2 Discharge instructions: No Meaningful Use Info Meaningful Use Meaningful Use Diagnoses (Choose all that apply): None applicable Discharge Plan Admission Admit Date/Time: 03/22/25 15:20 Primary Reason for Your Visit: Abscess right forearm Attending Provider: Prince Woods Primary Care Provider: Care Physician,No Primary Consulting Providers: Rashawn Izaguirre Instructions Additional Instructions / Restrictions: I recommend you see a family physician this week for reexamination of your arm wound, clean the wound with soap and water daily and apply a dressing, you will also need follow-up for your diabetes. If you have any rash or hives after starting your antibiotics, stop the cephalexin Return to the emergency room if you develop a temperature above 102 or your medical condition worsens Discharge Orders/Prescriptions Prescriptions: New doxycycline monohydrate 100 mg tablet 100 mg PO BID Qty: 30 0RF Rx Instructions: Start today glimepiride 4 mg tablet 4 mg PO DAILY Qty: 30 0RF Rx Instructions: Take 1 daily for diabetes metformin 500 mg tablet 500 mg PO BID Qty: 60 0RF Rx Instructions: 1 twice a day for diabetes cephalexin 500 mg tablet 500 mg PO TID Qty: 30 0RF Discontinued metformin 500 MG tablet 500 mg PO BID Qty: 60 1RF Referrals / Follow Up: Care Physician,No Primary [Primary Care Provider] - Disposition Disposition (needs filled in before D/C Order can be placed): Against Medical Advice Charges/Coding Visit Charges Inpatient E&M: 34655 Disch Hosp
--- NOTE | 2025-03-23 09:48 | NURSING ---
aware primary RN updated Dr. Woods patient is stating he's leaving ama. aware per primary RN patient threw ama form at her and refused to sign paper. aWare primary RN has instructed patient if he leaves and chooses to return to the hospital he will have to go to the ER. Security notified and to come escort patient to find enterance.
--- NOTE | 2025-03-23 17:32 | PCM.HOSP.N ---
Hospitalist Note Additional note: I was informed by the lab earlier this afternoon that the patient's blood culture was positive for gram-positive cocci, PCR was positive for Staph aureus and further identify the organism as MRSA. I tried to call the patient on his listed telephone number but the telephone number was not functional.
== END 2025-03-23 09:52 | disposition left against medical advice (07) | DRG 603 ==
LOC: ED 14:37 → MS3 15:37
PROVIDERS: Admitting Provider Hospitalist; Emergency Provider Emergency Medicine; Visit Provider Internal Medicine
DX: L02.413 Cutaneous abscess of right upper limb (principal); R78.81 Bacteremia; E11.9 Type 2 diabetes mellitus without complications; F17.210 Nicotine dependence, cigarettes, uncomplicated; L03.113 Cellulitis of right upper limb; Z53.29 Procedure and treatment not carried out because of patient's decision for other reasons
CPT/HCPCS: 10060; 36415; 80048; 80053; 80307; 81001; 82962; 83036; 83605; 85025; 85027; 87040; 87077; 87086; 87149; 87186; 99285; A4216

== ENCOUNTER 2025-04-23 15:02 | Emergency (ER) | payer SELFPAY ==
[2025-04-23 15:02] VITALS: BP 120/78; PULSE 101; RESP 16; TEMP 36.6; O2SAT 95
--- NOTE | 2025-04-23 18:14 | ED.RN ---
Pt called for ed room from waiting room. Pt not found in waiting room, hallway, restroom or outside ED doors. Assumed LWBS.
== END 2025-04-23 18:10 | disposition left against medical advice (07) ==
LOC: ED 18:15
DX: Z53.21 Procedure and treatment not carried out due to patient leaving prior to being seen by health care provider (principal)